=== PATIENT | female | born 1980 | race Caucasian/White ===

== ENCOUNTER 2022-11-09 16:14 | Outpatient (CLI) | payer OTHER, SELFPAY ==
--- NOTE | ~2022-11-09 | MM_ITS ---
EXAMINATION: MM screening mercedes BI w loco HISTORY: Screening mammogram TECHNIQUE: Craniocaudal and mediolateral oblique 3-D tomosynthesis images were obtained and synthetic 2-D images were generated. CAD analysis was submitted and interpreted. COMPARISON: No prior mammogram is available for comparison at this institution. BREAST PARENCHYMAL COMPOSITION: The breasts are heterogeneously dense, which may obscure small masses . FINDINGS: There is no evidence of suspicious mass, calcification, or architectural distortion to sugg est malignancy in either breast. There has been no suspicious interval change. IMPRESSION: 1. No mammographic evidence of malignancy. 2. Recommend routine screening mammography in one year. BI-RADS Category 1: Negative Reviewed, dictated and finalized at location A. D UNDERWRITER
== END 2022-11-09 16:15 | disposition home or self-care (01) ==
PROVIDERS: PCP Internal Medicine; Visit Provider Student in an Organized Health Care Education/Training Program
DX: Z12.31 Encounter for screening mammogram for malignant neoplasm of breast (principal)
CPT/HCPCS: 77063; 77067

== ENCOUNTER 2023-04-05 13:24 | Outpatient (CLI) | payer OTHER, SELFPAY ==
[2023-04-05 19:54] LABS: Influenza A QL RT-PCR Negative (Negative); Influenza B QL RT-PCR Negative (Negative); SARS-CoV-2 RNA PCR Negative (Negative)
== END 2023-04-05 13:25 | disposition home or self-care (01) ==
LOC: ANHGOSHLAB 13:25
PROVIDERS: PCP Internal Medicine; Visit Provider Internal Medicine
DX: J06.9 Acute upper respiratory infection, unspecified (principal); Z20.822 Contact with and (suspected) exposure to COVID-19
CPT/HCPCS: 87081; 87147; 87636

== ENCOUNTER → 2023-05-04 08:12 | Outpatient (CLI) | payer OTHER, SELFPAY ==
--- NOTE | ~2023-05-04 | US_ITS ---
EXAMINATION: US right upper quadrant DATE: 05/04/2023 08:44 INDICATION: Abnormal liver function TECHNIQUE: Multiple grayscale and Doppler ultrasound images of the abdomen were obtained. COMPARISON: None available FINDINGS: The head and body of the pancreas are normal. The pancreatic tail is obscured by bowel gas. The liver is normal with normal echogenicity and echotexture. No surface nodularity. Normal hepatope nas flow in the main portal vein. The gallbladder is normal with no abnormal wall thickening, pericho lecystic fluid or stones. The normal common bile duct measures 4 mm. There was no sonographic Osman sign. IMPRESSION: 1. Normal sonographic study of the gallbladder. Reviewed, dictated and finalized at location B.
== END ==
PROVIDERS: PCP Internal Medicine; Visit Provider Internal Medicine
DX: R94.5 Abnormal results of liver function studies (principal)
CPT/HCPCS: 76705

== ENCOUNTER 2023-12-28 13:32 | Outpatient (CLI) | payer OTHER, SELFPAY ==
--- NOTE | ~2023-12-28 | MM_ITS ---
EXAMINATION: MM screening mercedes BI w loco HISTORY: Screening mammogram TECHNIQUE: Craniocaudal and mediolateral oblique 3-D tomosynthesis images were obtained and synthetic 2-D images were generated. CAD analysis was submitted and interpreted. COMPARISON: 11/09/2022 bilateral screening mammogram BREAST PARENCHYMAL COMPOSITION: The breasts are heterogeneously dense, which may obscure small masses . FINDINGS: There is no evidence of suspicious mass, calcification, or architectural distortion to sugg est malignancy in either breast. There has been no suspicious interval change. IMPRESSION: 1. No mammographic evidence of malignancy. 2. Recommend routine screening mammography in one year. BI-RADS Category 1: Negative Reviewed, dictated and finalized at location A. SCHOOL SCIENCE TEACHER
== END 2023-12-28 13:33 ==
LOC: MICIMG 13:33
PROVIDERS: PCP Student in an Organized Health Care Education/Training Program; Visit Provider Student in an Organized Health Care Education/Training Program
DX: Z12.31 Encounter for screening mammogram for malignant neoplasm of breast (principal)
CPT/HCPCS: 77063; 77067

== ENCOUNTER 2025-01-01 14:47 | Outpatient (CLI) | payer OTHER, SELFPAY ==
--- NOTE | ~2025-01-01 | MM_ITS ---
EXAMINATION: MM screening mercedes BI w loco HISTORY: Screening mammogram TECHNIQUE: Craniocaudal and mediolateral oblique 3-D tomosynthesis images were obtained and synthetic 2-D images were generated. CAD analysis was submitted and interpreted. COMPARISON: 12/28/2023, 11/09/2022 BREAST PARENCHYMAL COMPOSITION:Dense: The breasts are heterogeneously dense, which may obscure small masses. FINDINGS: No suspicious mass, calcification, or architectural distortion are identified in either tiffany ast to suggest malignancy. There has been no suspicious interval change. IMPRESSION: No mammographic evidence of malignancy. Recommend routine screening mammography in one year. BI-RADS Category 1: Negative Reviewed, dictated and finalized at location .
--- OUTSIDE RECORDS SUMMARY | 2025-01-01 16:49 | XMS_ITS | Patient Health Summary ---
Author Organization [facility] [place] Address [address] [address] Care Team Providers Care Poultry Vaccinator Name Role Phone Sri Roque PA-C Primary Care Provider Note from [facility],non-owned Affiliates and Associated Physician Practices is amultiple site organization consisting of ambulatory clinics and hospital sitesin [place], [place], [place] and [place]. This disclosure is being madepursuant to the Care Everywhere program and may not contain all information available regarding this patient. Last updated 18.[facility] [place] Allergies * Food(GI Discomfort) Medications * Be aware that medications may not be up to date on this document. Alwaysverify current medications with the patient. * Wdmgbniu-Tne-Xf-FA ( VITAMIN WITH IRON) tablet Take 1 tablet by mouth once daily Reasons: Active Problems Problem Noted Date Diagnosed Date Advanced maternal age in multigravida 01/20/2018 Herpes genitalis 01/20/2018 History of chickenpox 01/20/2018 Social History Tobacco Use Types Packs/Day Years Used Date Smoking Tobacco: Never Smokeless Tobacco: Never Alcohol Use Standard Drinks/Week Comments No 0 (1 standard drink = 0.6 oz pur e alcohol) Sex and Gender Information Value Date Recorded Sex Assigned at Not on file Gender Identity Not on file Sexual Orientation Not on file Last Filed Vital Signs Vital Sign Reading Time Taken Comments Blood Pressure - - Pulse - - Temperature - - Respiratory Rate - - Oxygen Saturation - - Inhaled Oxygen Concentration - - Weight - - Height 162.6 cm (5' 4 ) 01/20/2018 9:11 AM CDT Body Mass Index - - Procedures * SONOGRAM - COMPLETE(Performed 03/14/2018) Performed for Elderly multigravida in first trimester (HCC) * SONOGRAM - COMPLETE(Performed 01/24/2018) Performed for Elderly multigravida in first trimester (HCC) Results * SONOGRAM - COMPLETE (03/14/2018 9:33 AM CDT) Only the most recent of2 resultswithin the time period is included. Anatomical Region Laterality Modality Other 03/14/2018 9:33 AM CDT Narrative 03/14/2018 8:36 PM CDT [facility] PHONE: FAX: Pat. Name: SONIA JONESGRAYSON Shah. No: [id number] Study Date: 03/14/2018 9:33am , Age: 07 1980, 37 Pregnancies: 3, Para 2 Height: 64 in Weight: 145 lb LMP: 10/23/2017 GA by LMP: 20w2d GA by Base: 20w2d MARIA ESTHER: 07/30/2018 GA by US: 20w1d MARIA ESTHER: 07/31/2018 GA Selected: 20w2d (LMP) MARIA ESTHER: 07/30/2018 Referring MD: Keaton Meza MD Pumper Helper: Fawn Quintanilla RDMS CPT4: 87769,20796 BMI: 24.89 Hist/Ind: Advanced Maternal Age Anatomy Screen Declines Genetic Testing MEASUREMENTS & AGE GROWTH EVALUATION Measurement GA Range Srce %for GA Ratios ----- ---- ------- BPD 4.6 cm 19w6d (38g7w-75g5l) Hadl BPD 32% FL/BPD 0.66 HC 17.5 cm 20w0d ([id number]-98i5q) Hadl HC 26% FL/AC 0.20 AC 15.5 cm 20w5d (00h7x-36g9o) Hadl AC 55% HC/AC 1.13 (1.06 - 1.24) FL 3.0 cm 19w3d (20s1k-68c7x) Hadl FL 14% CI 0.73 (0.70 - 0.86) HL 3.2 cm 20w6d (35k2q-35h3t) Jose HL 58% GA for sonogram 20w1d (47l2z-51h4u) Weight Estimate: based on (HL,BPD,HC,AC,FL) Avg Weight: 330 gm (282-378gm) Hadloc : 0lbs, 11oz Normal: 351 gm (263-440gm) Hadloc Wt% 33% for 20w2d Heart Rate: 148 bpm Amniotic Fluid Index: 05.3cm (Deepest Pocket) EVAL, PLACENTA Presentation: cephalic Umbilical Cord: 3 Vessels Placenta: anterior Heart Rate: 148 bpm Amniotic Fluid Volume: normal Anatomy!Normal!Abnormal!Suboptimal!Comments Cranium ! x ! ! ! Mdl (CSP/Thal! x ! ! ! Ventricles ! x ! ! ! Choroid Plexu! x ! ! ! Cerebellum ! x ! ! ! Cisterna M. ! x ! ! ! Nuchal Fold ! x ! ! ! Profile ! x ! ! ! Nasal Bone ! x ! ! ! Lip ! x ! ! ! Spine ! x ! ! ! Lungs ! x ! ! ! 4 Chamber Hea! x ! ! ! LVOT ! x ! ! ! RVOT ! x ! ! ! 3 Vessel View! x ! ! ! Cross-over ! x ! ! ! Ductal Arch ! x ! ! ! Aortic Arch ! x ! ! ! Caval View ! x ! ! ! Situs ! x ! ! ! Diaphragm ! x ! ! ! Stomach ! x ! ! ! Bowel ! x ! ! ! Kidneys ! x ! ! ! Bladder ! x ! ! ! 3 Vessel Cord! x ! ! ! Cord In! x ! ! ! Upper Extremi! x ! ! ! Hands ! x ! ! ! Lower Extremi! x ! ! ! Feet ! x ! ! ! External Desire! x ! ! !Female CLINICAL SUMMARY Study Number: 2 A single fetus is identified in cephalic presentation. The measurements today are consistent with appropriate growth for the MARIA ESTHER provided. The MARIA ESTHER selected is based on her LMP and a prior ultrasound examination. The amniotic fluid volume is normal. The placenta is anterior. No major malformations are seen. The patient was advised that ultrasound does not allow detection of all structural or chromosomal abnormalities. IMPRESSION: Single, live, IUP 20w2d Appropriate growth normal amniotic fluid Transvaginal cervical length measures 4.3cm RECOMMEND: Follow up ultrasound as clinically indicated. Thank you for allowing us the opportunity to care for your patient. Luther Pierre MD <Electronic Signature> 03/14/2018 08:36pm Keaton Meza MD [facility] ORDERABLES Care Teams Poultry Vaccinator Relationship Specialty Start Date End Date Sri Roque, DAGOBERTOC PCP - General Family Medicine 10/31/18
--- OUTSIDE RECORDS SUMMARY | 2025-01-01 16:49 | XMS_ITS | Data Portability ---
[facility] Address [address] [place] [address] Assessment Encounter Date Assessment Date Assessment LastModified by Organization Details LastModified Time 08/12/2021 08/12/2021 HARINI Schneider Not available 08/12/2021 16:50:31 Plan of Treatment Reminders Order Date Submit Date Provider Last Modified By Organization Details Last Modified Time Details Appointments None recorded. Lab pap, IG + HPV, cervical - please use Z11.51 in addition to code above for HPV testing. 2020 LENNY [facility], [address], [address] [address], [place], [address], 08:17:16 urinalysi s, dipstick 2020 021 [email or web address] In-Office Order, Internal Use Only DO Not Attach Compendium DO Not Attach Compendium, Do Not Delete/merge, [id number] 16:50:12 bacterial vaginosis panel, vaginal 2020 LENNY [facility] (Centralized Electronic Ordering - All Locations), Patient Can Go To The Location Of Their Choice, [address] 11:37:33 culture, vaginal/r ectal, streptoco ccus group B 2020 LENNY [facility] (Centralized Electronic Ordering - All Locations), Patient Can Go To The Location Of Their Choice, [address] 11:37:34 lipid panel, serum 2019 020 LENNY [facility], [address], [address], [place], [address], 0 06:38:03 CMP, serum or plasma 2019 020 [facility], [address], [address]ank[address], [place], [address], 0 06:38:03 TSH, serum or plasma 2019 020 SAMOA [facility], [address], [address], [place], [address], 0 06:38:05 CBC w/ auto diff 2019 SAMOA [facility], [address], [address]ank[address]icas, [place], [address], 0 06:38:04 vitamin B12 + folate, serum or blood 2019 020 SAMOA [facility], [address], [address], [place], [address], 0 06:38:04 iron + TIBC + ferritin, serum 2019 [facility], [address], [address]ank[address], [place], [address], 0 06:38:05 vitamin D, 25-hydrox y, total, serum 2019 020 [facility], [address], [address]ankar [address]icas, [place], [address], 0 16:23:30 test, urine 2018 019 [email or web address] In-Office Order, Internal Use Only DO Not Attach Compendium DO Not Attach Compendium, Do Not Delete/merge, [id number] 9 12:36:57 urinalysi s, dipstick 2018 019 [email or web address] In-Office Order, Internal Use Only DO Not Attach Compendium DO Not Attach Compendium, Do Not Delete/merge, [id number] 9 12:36:57 PPD (purified protein derivativ e), skin test 2017 018 [email or web address] In-Office Order, Internal Use Only DO Not Attach Compendium DO Not Attach Compendium, Do Not Delete/merge, [id number] 8 18:42:26 Referral None recorded. Procedures None recorded. Surgeries None recorded. Imaging None recorded. Medication Orders multivita min tablet 2020 021 LENNY [facility] [address], [address], 1 16:50:15 Calcium with Vitamin D 600 mg-10 mcg (400 unit) tablet 2020 021 [facility] [address], [address], 1 16:50:16 Slynd 4 mg (28) tablet 2019 020 [email or web address] [facility] [address], [address], 1 15:06:45 multivita min tablet 2019 020 [facility] [address], [address], 0 16:31:26 Calcium with Vitamin D 600 mg-10 mcg (400 unit) tablet 2019 020 [facility] [address], [address], 0 16:31:25 amoxicill in 875 mg-potass ium clavulana te 125 mg tablet 2019 020 [email or web address] [address] In [facility], [address] [place], [address], 1 15:05:45 Claritin 10 mg tablet 2019 020 [facility] [address] In [facility], [address] [place], [address], 0 16:48:27 Patient TargetsNo targets recorded. Patient InstructionsNo instructions recorded. Reason for Referral None Reported. Results Created Date Observation Date Name Description Value Unit Range Abnormal Flag Note LastModifiedBy Organization Detail LastModifiedTime 09/11/20 18 09/11/2018 bacte rial vagin osis + vagin itis panel , vagin al bv category: NOT SUPPOR TIVE see below Refer ence Range : Not Suppo rtive Not Available [address] [address] [place], [address], 09/11/2018 08:53:42 09/11/20 18 09/11/2018 bacte rial vagin osis + vagin itis panel , vagin al lactobacillu s species DETECT ED log_c ells/ mL Not Available [address] [address] [place], [address], 09/11/2018 08:53:42 09/11/20 18 09/11/2018 bacte rial vagin osis + vagin itis panel , vagin al atopobium vaginae NOT DETECT ED log_c ells/ mL - Not Available [facility] [address] [address] [place], [address], 09/11/2018 08:53:42 09/11/20 18 09/11/2018 bacte rial vagin osis + vagin itis panel , vagin al megasphaera species NOT DETECT ED log_c ells/ mL - Not Available [facility] [address] [address] [place], [address], 09/11/2018 08:53:42 09/11/20 18 09/11/2018 bacte rial vagin osis + vagin itis panel , vagin al gardnerella vaginalis NOT DETECT ED log_c ells/ mL - NOT SUPPO RTIVE of BV: The patte rn of teofilo encarnacion is not suppo rtive of a diagn osis of BV: 1) Prese nce of Lacto bacil reno spp., G. vagin martha level s less than 6.0 log cells /mL, and absen ce of A. vagin ae and Megas phaer a spp; or 2) Absen ce of all targe sebastián organ isms; or 3) Absen ce of Lacto bacil reno spp. plus G. vagin martha detec sebastián at level s less than 6.0 log cells /mL and absen ce of A. vagin ae and Megas phaer a spp. EQUIV OCAL for BV: The patte rn of teofilo encarnacion is neith er suppo rtive nor not suppo rtive of a diagn osis of BV. The patie nt may be in trans ition into or out of BV: Prese nce of Lacto bacil reno spp. plus G. vagin martha (grea ter or equal to 6.0 log cells /mL) and/o r one of the other BV-as socia sebastián patho gens SUPPO RTIVE of BV: The patte rn of teofilo encarnacion is suppo rtive of a diagn osis of BV: Absen ce of Lacto bacil reno spp. and prese nce of G. vagin martha great er than or equal to 6.0 log cells /mL and/o r one or both of the other BV-as socia sebastián patho gens. Janel ntrat ion for Lacto bacil li (L. acido philu s/cri spatu s, L. jense juancarlos) are colle ctive ly repor sebastián under the term 'Lact obaci llus spp.' , as these speci es are among the perox james produ cing Lacto bacil li thoug ht to be prote ctive again st bacte rial vagin osis. Atopo bium vagin ae, Megas phaer a spp., and Gardn erell a (grea ter than 6.0 log cells /mL) have been assoc iated with vagin osis when prese nt in the absen ce of perox idase produ cing Lacto bacil li. Not Available [facility] - [address] [place], [address], 09/11/2018 08:53:42 09/11/20 18 09/11/2018 bacte rial vagin osis + vagin itis panel , vagin al sureswab(R) trichomonas vaginalis RNA, ql tma NOT DETECT ED not detect ed Not Available [facility] - [address] [address] [place], [address], 09/11/2018 08:53:42 09/11/20 18 09/11/2018 bacte rial vagin osis + vagin itis panel , vagin al C. albicans, DNA NOT DETECT ED not detect ed Not Available [facility] - [address], [address], 09/11/2018 08:53:42 09/11/20 18 09/11/2018 bacte rial vagin osis + vagin itis panel , vagin al C. glabrata, DNA NOT DETECT ED not detect ed Not Available [facility] - [address], [address], 09/11/2018 08:53:42 09/11/20 18 09/11/2018 bacte rial vagin osis + vagin itis panel , vagin al C. tropicalis, DNA NOT DETECT ED not detect ed Not Available [facility] - [address] [address] [place], [address], 09/11/2018 08:53:42 09/11/20 18 09/11/2018 bacte rial vagin osis + vagin itis panel , vagin al C. parapsilosis , DNA NOT DETECT ED not detect ed This test was devel oped and its latosha tical perfo rmanc e rohan cteri stics have been deter mined by [facility] ostestela [facility] Shanel mary. It has not been clear ed or appro joycelyn by the [place] Food and Drug Admin istra tion. This assay has been valid ated pursu ant to the CLIA regul ation s and is used for clini anny purpo ses. For more infor arnold fair on this test, go to: http: //[facility] radha fair.que stdia gnost ics.c om/fa q/Tri chomo nastm a Not Available [facility] [address] [address] [place], [address], 09/11/2018 08:53:42 09/11/20 18 09/11/2018 HSV (1+2) DNA, qual, PCR, unspe cifie d speci men hsv 1 DNA NOT DETECT ED not detect ed Not Available [facility] [address] [address] [place], [address], 09/11/2018 08:53:42 09/11/20 18 09/11/2018 HSV (1+2) DNA, qual, PCR, unspe cifie d speci men hsv 2 DNA NOT DETECT ED not detect ed This test was devel oped and its latosha tical perfo rmanc e rohan cteri stics have been deter mined by [facility] wanda Ugarte cia. It has not been clear ed or appro joycelyn by the [place] Food and Drug Admin istra tion. This assay has been valid ated pursu ant to the CLIA regul ation s and is used for clini anny purpo ses. Not Available [facility] [address] [address] [place], [address], 09/11/2018 08:53:42 09/11/20 18 09/11/2018 yeast , organ ism speci fic cultu re, unspe cifie d speci men culture, yeast, w/identifica tion SEE NOTE CULTU RE, YEAST , W/JAMES NTIFI CATIO N MICRO NUMBE R: [id number] TEST STATU S: FINAL SPECI MEN SOURC E: UNSPE CIFIE D SPECI MEN QUALI TY: ADEQU ATE RESUL T: Asper gillu s speci es (not A. fumig atus, flavu s or niger group ) NO COLLE CTION DATE RECEI JOYCELYN. WE HAVE USED THE DATE THE SPECI MEN WAS RECEI JOYCELYN BY THIS LABOR ATORY THE COLLE CTION DATE. IF THIS IS INCOR RECT, PLEAS E CONTA CT CLIEN T SERVI MARK. PHONE NUMBE R: [phone] Not Available [facility] [address] [place], [address], 09/11/2018 08:53:43 08/12/2008/12/2021 urina lysis , dipst ick Leukocytes Negati ve Not Available In-Office Order Internal Use Only DO Not Attach Compendium DO Not Attach Compendium, Do Not Delete/merge, [id number] 08/12/2021 14:58:18 08/12/20 21 08/12/2021 urina lysis , dipst ick Nitrite negati ve Not Available In-Office Order Internal Use Only DO Not Attach Compendium DO Not Attach Compendium, Do Not Delete/merge, 08/12/2021 14:58:18 08/12/20 21 08/12/2021 urina lysis , dipst ick Urobilinogen .2 Not Available In-Of fice Order Internal Use Only DO Not Attach Compendium DO Not Attach Compendium, Do Not Delete/merge, [id number] 08/12/2021 14:58:18 08/12/20 21 08/12/2021 urina lysis , dipst ick Protein Negati ve Not Available In-Office Order Internal Use Only DO Not Attach Compendium DO Not Attach Compendium, Do Not Delete/merge, [id number] 08/12/2021 14:58:18 08/12/20 21 08/12/2021 urina lysis , dipst ick pH 5.5 Not Available In-Office Order Internal Use Only DO Not Attach Compendium DO Not Attach Compendium, Do Not Delete/merge, [id number] 08/12/2021 14:58:18 08/12/20 21 08/12/2021 urina lysis , dipst ick Blood Hemoly zed: Trace Not Available In-Office Order Internal Use Only DO Not Attach Compendium DO Not Attach Compendium, Do Not Delete/merge, 08/12/2021 14:58:18 08/12/20 21 08/12/2021 urina lysis , dipst ick Specific [place] 1.025 Not Available In-Off ice Order Internal Use Only DO Not Attach Compendium DO Not Attach Compendium, Do Not Delete/merge, 08/12/2021 14:58:18 08/12/20 21 08/12/2021 urina lysis , dipst ick Ketone Trace Not Available In-Office Order Internal Use Only DO Not Attach Compendium DO Not Attach Compendium, Do Not Delete/merge, 08/12/2021 14:58:18 08/12/20 21 08/12/2021 urina lysis , dipst ick Bilirubin Negati ve Not Available In-Office Order Internal Use Only DO Not Attach Compendium DO Not Attach Compendium, Do Not Delete/merge, 08/12/2021 14:58:18 08/12/20 21 08/12/2021 urina lysis , dipst ick Glucose Negati ve Not Available In-Office Order Internal Use Only DO Not Attach Compendium DO Not Attach Compendium, Do Not Delete/merge, 08/12/2021 14:58:18 11/23/19 19 11/23/2018 urina lysis , dipst ick Leukocytes Negati ve Not Available In-Office Order Internal Use Only DO Not Attach Compendium DO Not Attach Compendium, Do Not Delete/merge, 11/23/2018 12:04:49 11/23/19 19 11/23/2018 urina lysis , dipst ick Nitrite negati ve Not Available In-Office Order Internal Use Only DO Not Attach Compendium DO Not Attach Compendium, Do Not Delete/merge, 11/23/2018 12:04:49 11/23/19 19 11/23/2018 urina lysis , dipst ick Urobilinogen .2 Not Available In-Of fice Order Internal Use Only DO Not Attach Compendium DO Not Attach Compendium, Do Not Delete/merge, 11/23/2018 12:04:49 11/23/19 19 11/23/2018 urina lysis , dipst ick Protein Negati ve Not Available In-Office Order Internal Use Only DO Not Attach Compendium DO Not Attach Compendium, Do Not Delete/merge, 11/23/2018 12:04:49 11/23/1911/23/2018 urina lysis , dipst ick pH 5.0 Not Available In-Office Order Internal Use Only DO Not Attach Compendium DO Not Attach Compendium, Do Not Delete/merge, 11/23/2018 12:04:49 11/23/1911/23/2018 urina lysis , dipst ick Blood Negati ve Not Available In-Office Order Internal Use Only DO Not Attach Compendium DO Not Attach Compendium, Do Not Delete/merge, 11/23/2018 12:04:49 11/23/1911/23/2018 urina lysis , dipst ick Specific [place] 1.030 Not Available In-Off ice Order Internal Use Only DO Not Attach Compendium DO Not Attach Compendium, Do Not Delete/merge, 11/23/2018 12:04:49 11/23/1911/23/2018 urina lysis , dipst ick Ketone Negati ve Not Available In-Office Order Internal Use Only DO Not Attach Compendium DO Not Attach Compendium, Do Not Delete/merge, 11/23/2018 12:04:49 11/23/1911/23/2018 urina lysis , dipst ick Bilirubin Negati ve Not Available In-Office Order Internal Use Only DO Not Attach Compendium DO Not Attach Compendium, Do Not Delete/merge, 11/23/2018 12:04:49 11/23/1911/23/2018 urina lysis , dipst ick Glucose Negati ve Not Available In-Office Order Internal Use Only DO Not Attach Compendium DO Not Attach Compendium, Do Not Delete/merge, 11/23/2018 12:04:49 11/23/1911/23/2018 pregn jalil test, urine HCG negati ve Not Available In-Office Order Internal Use Only DO Not Attach Compendium DO Not Attach Compendium, Do Not Delete/merge, 11/23/2018 12:04:42 10/12/20 18 10/12/2018 PPD (tai fied prote in deriv ative ), skin test Result Negati ve Not Available In-Office Order Internal Use Only DO Not Attach Compendium DO Not Attach Compendium, Do Not Delete/merge, [id number] 10/10/2018 18:35:10 10/25/19 19 10/25/2018 PPD (tai fied prote in deriv ative ), skin test Result Negati ve Not Available In-Office Order Internal Use Only DO Not Attach Compendium DO Not Attach Compendium, Do Not Delete/merge, [id number] 10/20/2018 16:41:02 07/10/20 20 07/11/2020 iron + TIBC + sathish tin, serum iron, total 58 mcg/d L 40-190 normal Not Available [address], [address], 07/11/2020 10:45:47 07/10/20 20 07/11/2020 iron + TIBC + sathish tin, serum iron binding capacity 322 mcg/d L_(ca lc) 250-45 0 normal Not Available [address], [address], 07/11/2020 10:45:47 07/10/20 20 07/11/2020 iron + TIBC + sathish tin, serum % saturation 18 %_(ca lc) 16-45 normal Not Available [address], [address], 07/11/2020 10:45:47 07/10/20 20 07/11/2020 iron + TIBC + sathish tin, serum ferritin 37 NG/mL 16-154 normal Not Available [address], [address], 07/11/2020 10:45:47 07/10/20 20 07/11/2020 lipid panel , serum cholesterol, total 161 mg/dL <200 normal Not Available [address], [address], 07/11/2020 10:45:47 07/10/20 20 07/11/2020 lipid panel , serum HDL cholesterol 52 mg/dL > or = 50 normal Not Available [address], [address], 07/11/2020 10:45:47 07/10/20 20 07/11/2020 lipid panel , serum triglyceride s 84 mg/dL <150 normal Not Available [address], [address], 07/11/2020 10:45:47 07/10/20 20 07/11/2020 lipid panel , serum LDL-choleste rol 92 mg/dL _(anny c) normal Refer ence range : <100 Olu able range <100 mg/dL for prima ry preve ntion ; <70 mg/dL for patie nts with CHD or diabe tic patie nts with > or = 2 CHD risk facto rs. LDL-C is now calcu lated using the Ryanne fair-Hop kins calcu sheryl n, which is a valid ated novel metho d provi ding shefali r accur acy than the Fried ezekiel equat ion in the estim ation of LDL-C . Ryanne fair SS et al. AMRIK. 2013; 310(1 9): 2061- 2068 (http ://ed ucati on.Qu Srinivas PEX Card. com/f aq/FA Q164) Not Available [address] [address] [place], [address], 07/11/2020 10:45:47 07/10/2007/11/2020 lipid panel , serum chol/HDLC ratio 3.1 (calc ) <5.0 normal Not Available [address], [address], 07/11/2020 10:45:47 07/10/2007/11/2020 lipid panel , serum non HDL cholesterol 109 mg/dL _(anny c) <130 normal For patie nts with diabe robbi plus 1 major ASCVD risk facto r, treat ing to a non-H DL-C goal of <100 mg/dL (LDL- C of <70 mg/dL ) is consi dered a thera peuti c optio n. Not Available [address], [address], 07/11/2020 10:45:47 07/10/20 20 07/11/2020 CMP, serum or plasm a glucose 92 mg/dL 65-99 normal Fasti ng refer ence inter diana Not Available [address], [address], 07/11/2020 10:45:47 07/10/20 20 07/11/2020 CMP, serum or plasm a urea nitrogen (BUN) 10 mg/dL 7-25 normal Not Available [address], [address], 07/11/2020 10:45:47 07/10/20 20 07/11/2020 CMP, serum or plasm a creatinine 0.61 mg/dL 0.50-1 .10 normal Not Available [address], [address], 07/11/2020 10:45:47 07/10/20 20 07/11/2020 CMP, serum or plasm a eGFR non-afr. egyptian 114 mL/mi n/1.7 3m2 > or = 60 normal Not Available [address], [address], 07/11/2020 10:45:47 07/10/20 20 07/11/2020 CMP, serum or plasm a eGFR 132 mL/mi n/1.7 3m2 > or = 60 normal Not Available [address], [address], 07/11/2020 10:45:47 07/10/20 20 07/11/2020 CMP, serum or plasm a BUN/creatini ne ratio NOT APPLIC ABLE (calc ) 6-22 Not Available [address], [address], 07/11/2020 10:45:47 07/10/20 20 07/11/2020 CMP, serum or plasm a sodium 137 mmol/ L 135-14 6 normal Not Available [address], [address], 07/11/2020 10:45:47 07/10/20 20 07/11/2020 CMP, serum or plasm a potassium 4.6 mmol/ L 3.5-5. 3 normal Not Available [address], [address], 07/11/2020 10:45:47 07/10/2007/11/2020 CMP, serum or plasm a chloride 101 mmol/ L 98-110 normal Not Available [address], [address], 07/11/2020 10:45:47 07/10/20 20 07/11/2020 CMP, serum or plasm a carbon dioxide 29 mmol/ L 20-32 normal Not Available [address], [address], 07/11/2020 10:45:47 07/10/20 20 07/11/2020 CMP, serum or plasm a calcium 9.3 mg/dL 8.6-10 .2 normal Not Available [address], [address], 07/11/2020 10:45:47 07/10/2007/11/2020 CMP, serum or plasm a protein, total 6.9 g/dL 6.1-8. 1 normal Not Available [address], [address], 07/11/2020 10:45:47 07/10/20 20 07/11/2020 CMP, serum or plasm a albumin 4.1 g/dL 3.6-5. 1 normal Not Available [address], [address], 07/11/2020 10:45:47 07/10/20 20 07/11/2020 CMP, serum or plasm a globulin 2.8 g/dL_ (calc ) 1.9-3. 7 normal Not Available [address], [address], 07/11/2020 10:45:47 07/10/20 20 07/11/2020 CMP, serum or plasm a albumin/glob ulin ratio 1.5 (calc ) 1.0-2. 5 normal Not Available [address], [address], 07/11/2020 10:45:47 07/10/20 20 07/11/2020 CMP, serum or plasm a bilirubin, total 0.5 mg/dL 0.2-1. 2 normal Not Available [address], [address], 07/11/2020 10:45:47 07/10/20 20 07/11/2020 CMP, serum or plasm a alkaline phosphatase 46 U/L 31-125 normal Not Available [facility] [address], [address], 07/11/2020 10:45:47 07/10/20 20 07/11/2020 CMP, serum or plasm a AST 14 U/L 10-30 normal Not Available [address], [address], 07/11/2020 10:45:47 07/10/20 20 07/11/2020 CMP, serum or plasm a ALT 17 U/L 6-29 normal Not Available [address], [address], 07/11/2020 10:45:47 07/10/20 20 07/11/2020 CBC w/ auto diff white blood cell count 7.4 thous and/u L 3.8-10 .8 normal Not Available [address], [address], 07/11/2020 10:45:48 07/10/2007/11/2020 CBC w/ auto diff red blood cell count 4.14 lydia on/uL 3.80-5 .10 normal Not Available [address], [address], 07/11/2020 10:45:48 07/10/2007/11/2020 CBC w/ auto diff hemoglobin 12.2 g/dL 11.7-1 5.5 normal Not Available [address], [address], 07/11/2020 10:45:48 07/10/2007/11/2020 CBC w/ auto diff hematocrit 37.3 % 35.0-4 5.0 normal Not Available [address], [address], 07/11/2020 10:45:48 07/10/20 20 07/11/2020 CBC w/ auto diff MCV 90.1 fL 80.0-1 00.0 normal Not Available [address], [address], 07/11/2020 10:45:48 07/10/2007/11/2020 CBC w/ auto diff MCH 29.5 pg 27.0-3 3.0 normal Not Available [address], [address], 07/11/2020 10:45:48 07/10/2007/11/2020 CBC w/ auto diff MCHC 32.7 g/dL 32.0-3 6.0 normal Not Available [address], [address], 07/11/2020 10:45:48 07/10/2007/11/2020 CBC w/ auto diff RDW 12.1 % 11.0-1 5.0 normal Not Available [address], [address], 07/11/2020 10:45:48 07/10/20 20 07/11/2020 CBC w/ auto diff platelet count 276 thous and/u L 140-40 0 normal Not Available [address], [address], 07/11/2020 10:45:48 07/10/20 20 07/11/2020 CBC w/ auto diff MPV 12.5 fL 7.5-12 .5 normal Not Available [address], [address], 07/11/2020 10:45:48 07/10/20 20 07/11/2020 CBC w/ auto diff absolute neutrophils 4803 cells /uL 1500-7 800 normal Not Available [address], [address], 07/11/2020 10:45:48 07/10/20 20 07/11/2020 CBC w/ auto diff absolute lymphocytes 1702 cells /uL 850-39 00 normal Not Available [address], [address], 07/11/2020 10:45:48 07/10/20 20 07/11/2020 CBC w/ auto diff absolute monocytes 555 cells /uL 200-95 0 normal Not Available [address], [address], 07/11/2020 10:45:48 07/10/20 20 07/11/2020 CBC w/ auto diff absolute eosinophils 289 cells /uL 15-500 normal Not Available [address], [address], 07/11/2020 10:45:48 07/10/20 20 07/11/2020 CBC w/ auto diff absolute basophils 52 cells /uL 0-200 normal Not Available [address], [address], 07/11/2020 10:45:48 07/10/20 20 07/11/2020 CBC w/ auto diff neutrophils 64.9 % normal Not Available [address], [address], 07/11/2020 10:45:48 07/10/20 20 07/11/2020 CBC w/ auto diff lymphocytes 23.0 % normal Not Available [address], [address], 07/11/2020 10:45:48 07/10/20 20 07/11/2020 CBC w/ auto diff monocytes 7.5 % normal Not Available [address], [address], 07/11/2020 10:45:48 07/10/20 20 07/11/2020 CBC w/ auto diff eosinophils 3.9 % normal Not Available [address], [address], 07/11/2020 10:45:48 07/10/20 20 07/11/2020 CBC w/ auto diff basophils 0.7 % normal Not Available [address], [address], 07/11/2020 10:45:48 07/10/20 20 07/11/2020 awn test refus al RAM1 Be advis ed that your patie nt has indic ated on the advan ce writt en notic e their decis ion not to recei ve the [facility] labor atory tests . As a resul t, the tests will not be perfo rmed. Not Available [address], [address], 07/11/2020 10:45:48 07/10/20 20 07/11/2020 awn test refus al awn test refused [id number] Not Available [address], [address], 07/11/2020 10:45:48 07/10/20 20 07/11/2020 vitam in B12 + folat e, serum or blood vitamin B12 333 pg/mL 200-11 00 normal Pleas e Note: Altho ugh the refer ence range for vitam in B12 is 200-1 100 pg/mL , it has been repor sebastián that betwe en 5 and 10% of patie nts with value s betwe en 200 and 400 pg/mL may exper ience neuro psych iatri c and hemat ologi c abnor malit ies due to occul t B12 defic iency ; less than 1% of patie nts with value s above 400 pg/mL will have sympt oms. Not Available [facility] [address] [place], [address], 07/11/2020 10:45:48 07/10/20 20 07/11/2020 vitam in B12 + folat e, serum or blood folate, serum 13.2 NG/mL normal Refer ence Range Low: <3.4 Borde rline : 3.4-5 .4 Mackenzie l: >5.4 Not Available [facility] [address] [place], [address], 07/11/2020 10:45:48 07/10/2007/11/2020 TSH, serum or plasm a TSH w/reflex to FT4 1.20 mIU/L normal Refer ence Range > or = 20 Years 0.40- 4.50 Pregn jalil Range s First trime ster 0.26- 2.66 Secon d trime ster 0.55- 2.73 Third trime ster 0.43- 2.91 Not Available [facility] [address] [place], [address], 07/11/2020 10:45:49 08/12/20 21 08/14/2021 IGP, APTIM A HPV diagnosis: Commen t NEGAT KIERAN FOR INTRA EPITH ELIAL LESIO N OR JAYJAY TREJO . Not Available [facility] ([facility]) [address] [facility], [place], [address], 08/15/2021 08:17:16 08/12/2008/14/2021 IGP, APTIM A HPV specimen adequacy: Parveen bello Satis facto ry for evalu ation . Endoc ervic al and/o r squam ous metap lasti c cells (endo cervi anny compo nent) are prese nt. Not Available [facility] ([facility]) [address] [facility], [place], [address], 08/15/2021 08:17:16 08/12/20 21 08/14/2021 IGP, APTIM A HPV clinician provided ICD10: Parveen bello Z01.4 19 Not Available [facility] ([facility]) [address] [place], [address], 08/15/2021 08:17:16 08/12/20 21 08/14/2021 IGP, APTIM A HPV performed by: Parveen finley, Cytot jeff reilly t (ASCP ) Not Available [facility] ([facility]) [address] [place], [address], 08/15/2021 08:17:16 08/12/20 21 08/14/2021 IGP, APTIM A HPV . . Not Available [facility] ([facility]) [address] [place], [address], 08/15/2021 08:17:16 08/12/20 21 08/14/2021 IGP, APTIM A HPV note: Parveen bello The Pap smear is a scree pooja test desig silvestre to aid in the detec tion of kristen ligna nt and malig nant condi tions of the uteri ne cervi x. It is not a diagn ostic proce dure and shoul d not be used as the sole means of detec ting cervi anny cance r. Both false -posi tive and false -nega tive repor ts do occur . Not Available [facility] ([facility]) [address] [facility], [place], [address], 08/15/2021 08:17:16 08/12/2008/14/2021 IGP, APTIM A HPV test methodology: Commen t This liqui d based ThinP rep(R ) pap test was nelly rivers with the use of an image guide ivy vizcarra. Not Available [facility] ([facility]) [address] [facility], [place], [address], 08/15/2021 08:17:16 08/12/2008/15/2021 IGP, APTIM A HPV HPV aptima Negati ve negati ve This nucle ic acid ampli ficat ion test detec ts fourt een high- risk HPV types (16,1 8,31, 33,35 ,39,4 5,51, 52,56 ,58,5 9,66, 68) witho ut diffe renti ation . Not Available [facility] ([facility]) [address] [facility], [place], [address], 08/15/2021 08:17:16 08/12/2008/17/2021 NUSWA B VG+, HSV atopobium vaginae Low - 0 score Not Available [facility] ([facility]) [address] [facility], [place], [address], 08/19/2021 11:37:33 08/12/2008/17/2021 NUSWA B VG+, HSV bvab 2 Low - 0 score Not Available [facility] ([facility]) [address] [place], [address], 08/19/2021 11:37:33 08/12/20 21 08/17/2021 NUSWA B VG+, HSV megasphaera 1 Low - 0 score Calcu late total score by soo jorgensen the 3 indiv idual bacte rial vagin osis (BV) marke r score s toget her. Total score is inter prete d as follo ws: Total score 0-1: Indic ates the absen ce of BV. Total score 2: Indet ermin ate for BV. Addit ional clini anny data shoul d be evalu ated to estab chantale a diagn osis. Total score 3-6: Indic ates the prese nce of BV. This test was devel oped and its perfo rmanc e rohan cteri stics deter mined by [facility]. It has not been clear ed or appro joycelyn by the Food and Drug Admin istra tion. Not Available [facility] ([facility]) [address] [facility], [place], [address], 08/19/2021 11:37:33 08/12/2008/17/2021 NUSWA B VG+, HSV cortney albicans, JANES Positi ve negati ve abnormal Not Available [facility] ([facility]) [address] [place], [address], 08/19/2021 11:37:33 08/12/2008/17/2021 NUSWA B VG+, HSV cortney glabrata, JANES Negati ve negati ve Not Available [facility] ([facility]) [address] [place], [address], 08/19/2021 11:37:33 08/12/2008/17/2021 NUSWA B VG+, HSV chlamydia trachomatis, JANES Negati ve negati ve Not Available [facility] ([facility]) [address] [place], [address], 08/19/2021 11:37:33 08/12/2008/17/2021 NUSWA B VG+, HSV neisseria gonorrhoeae, JANES Negati ve negati ve Not Available [facility] ([facility]) [address] [place], [address], 08/19/2021 11:37:33 08/12/20 21 08/19/2021 NUSWA B VG+, HSV trich vag by JANES TNP Test Not Perfo rmed. The speci men submi tted was too visco us for latosha sis. Not Available [facility] ([facility]) [address] [place], [address], 08/19/2021 11:37:33 08/12/20 21 08/19/2021 NUSWA B VG+, HSV hsv 1 JANES Negati ve negati ve Not Available [facility] ([facility]) [address] [place], [address], 08/19/2021 11:37:33 08/12/2008/19/2021 NUSWA B VG+, HSV hsv 2 JANES Negati ve negati ve Not Available [facility] ([facility]) [address] [place], [address], 08/19/2021 11:37:33 08/12/2008/14/2021 STREP GP B JANES strep gp B JANES Positi ve negati ve abnormal Cente rs for Disea se Contr ol and Preve ntion (CDC) and Ameri can Congr ess of Obste trici ans and Gynec ologi sts (ACOG ) guide lines for preve ntion of perin atal group B strep tococ anny (GBS) disea se speci fy co-co llect ion of a vagin al and recta l swab speci men to maxim ize sensi tivit y of GBS detec tion. Per the CDC and ACOG, swabb ing both the lower vagin a and rectu m subst antia lly incre ases the yield of detec tion mendy red with sampl ing the vagin a alone . Penic illin G, ampic illin , or cefaz mariya are indic ated for intra partu m proph ylaxi s of perin atal GBS colon izati on. Refle x susce ptibi lity testi ng shoul d be perfo rmed prior to use of clind amyci n only on GBS isola robbi from penic illin -chalino rgic women who are consi dered a high risk for anaph ylaxi s. Treat ment with vanco mycin witho ut addit ional testi ng is warra nted if resis tance to clind mushtaq n is noted . Not Available [facility] ([facility]) [address] [facility], [place], [address], 08/19/2021 11:37:34 Result Notes None recorded. Problems Name Problem SNOMED Code Status Onset Date Resolution Date Notes Provider Name and Address Organization Details Recorded Time Acute sinusitis 17305002 Active 2017 Rio Machado [place] null, [place] - [facility] 9 12:02:38 24352132 Completed 201701/25/2018 Keaton Meza [place] - [facility] 8 12:12:31 Advanced maternal age 672617253 Completed 2017 Rena Dee [place] [facility] 8 13:05:06 Advanced maternal age 979966629 Active 2017 Rena Dee [place] [facility] 8 13:05:06 Genital herpes simplex type 2 711404154 Completed 2015 Rena Dee [place] [facility] 8 13:05:06 Acute sinusitis 25821771 Completed 2017 Rena Dee [place] [facility] 8 13:05:06 Allergic rhinitis 30035785 Completed Rena Dee [place] [facility] 8 13:05:06 Acute urinary tract infection 172768850 Completed Rena Dee [place] [facility] 8 13:05:06 Tuberculo sis screening Active 2017 Rio Machado [place] [facility] 9 12:02:38 At increased risk of nutrition al deficit 967296557 Active 2019 Cheko Hong PA-C Attn: Rodríguez g,[address] [facility], [place], [address], [place] [facility] 0 16:48:56 Hyperlipi demia screening Active 2019 Cheko Hong PA-C Attn: Rodríguez jorgensen,[address] [facility], [place], [address], [place] [facility] 0 16:50:53 Group B Streptoco ccus carrier 816897784159 3 Active 2020 Keaton [place] muñoz, [place] - [facility] 1 11:48:53 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 70545436 Active 2020 Keaton Susana muñoz, [place] - [facility] 1 11:48:56 Allergic rhinitis 73753305 Active MARIA E Perez, [place] - [facility] 9 12:02:38 Painful urging to urinate 71503929 Completed 01/25/2018 Keaton muñoz [place] - [facility] 8 12:12:36 Acute urinary tract infection 435653145 Active MARIA E [place] [facility] 9 12:02:38 Genital herpes simplex type 2 683494978 Active 2015 Rio Machado [place] [facility] 9 12:02:38 History and physical examinati on, school Completed 201601/25/2018 Keaton muñoz, [place] - [facility] 8 12:12:54 Requires tetanus and diphtheri a vaccinati on 046232228 Completed 201601/25/2018 Keaton muñoz [place] - [facility] 8 12:12:58 History of chickenpo x 340807727 Completed 201601/25/2018 Keaton muñoz, [place] - [facility] 8 12:13:07 Problem Notes None recorded. Procedures Surgical History Date Name Laterality Status Provider Name and Address Organization Details Recorded Time 1 Date of Last Pap Smear completed MARIA E Hyde - [facility] 08/12/2021 15:07:21 8 IUD Insertion completed Rena Dee MA [place] - [facility] 09/04/2018 12:49:08 Imaging Results None recorded. Procedure Notes None recorded. Medical Equipment None Reported. Allergies Allergen ID Allergen Name Allergen Category Reaction Reaction Severity Criticality Documentation Date Start Date Code Code System Note Provider Name and Address Organization Details Recorded Time 56547 banana extract food,medi cation itching severe Not available 05/10/2016 62282 9 RxNorm itchy throa t and swoll en throa t Not Available Not Available Not Available Medications Name Sig Start Date Stop Date Status Note LastModified by Organization Details LastModified Time Prescriptio n - Prior Authorizati on Request 06/28 completed Not Available Not Available Not Available multivitami n tablet Take 1 tablet every day by oral route. 2020 active Not Available Not Available Not Avai lable azithromyci n 250 mg tablet TAKE 2 TABLETS (500 MG) BY ORAL ROUTE ONCE DAILY FOR 1 DAY THEN 1 TABLET (250 MG) BY ORAL ROUTE ONCE DAILY FOR 4 DAYS 06/28 completed Not Available Not Available Not Available ibuprofen 800 mg tablet Take 1 tablet 3 times a day by oral route with meals for 30 days. 01/25 completed Not Available Not Available Not Available fluconazole 150 mg tablet Take 1 tablet by oral route. active Not Available Not Available No t Available valacyclovi r 1 gram tablet 06/28 completed Not Available Not Available Not Available Tubersol 5 tub. unit/0.1 mL intradermal injection solution Inject 0.1 mL by intraderm al route. 01/25 completed Not Available Not Available Not Available penicillin V potassium 500 mg tablet Take 1 tablet every 8 hours by oral route for 7 days. active Not Available Not Available No t Available sulfamethox azole 800 mg-trimetho prim 160 mg tablet Take 1 tablet every 12 hours by oral route for 10 days. 01/25 completed Not Available Not Available Not Available acyclovir 800 mg tablet Take 1 tablet every day by oral route. 06/05 completed Not Available Not Available Not Available Vitamin tablet Take 1 tablet every day by oral route as directed for 30 days. 06/05 completed Not Available Not Available Not Available benzonatate 100 mg capsule Take 1 capsule 3 times a day by oral route. 06/28 completed Not Available Not Available Not Available progesteron e micronized 200 mg capsule Take 1 capsule twice a day by oral route. 03/27 completed Not Available Not Available Not Available ergocalcife rol (vitamin D2) 1,250 mcg (50,000 unit) capsule 08/12 completed Not Available Not Available Not Available fluticasone propionate 50 mcg/actuati on nasal spray,suspe nsion active Not Available Not Available Not Available ParaGard T 380A 380 square mm intrauterin e device Take 1 device by intrauter ine route. 2017 active Not Available Not Available Not Avai lable loratadine 10 mg tablet Take 1 tablet every day by oral route. active Not Available Not Available No t Available amoxicillin 875 mg-potassiu m clavulanate 125 mg tablet Take 1 tablet every 12 hours by oral route. 08/12 completed Not Available Not Available Not Available Calcium with Vitamin D3 600 mg (carbonate) -10 mcg (400 unit) capsule Take 1 capsule twice a day by oral route. 06/28 completed Not Available Not Available Not Available Calcium with Vitamin D 600 mg-10 mcg (400 unit) tablet Take 1 tablet twice a day by oral route. 2020 active Not Available Not Available Not Avai lable calcium 600 mg (as carbonate)- vitamin D3 20 mcg (800 unit) tablet Take 1 tablet twice a day by oral route for 30 days. 01/25 completed Not Available Not Available Not Available PrePlus 27 mg iron-1 mg tablet TAKE 1 TABLET DAILY DIRECTED 06/05 completed Not Available Not Available Not Available Slynd 4 mg (28) tablet Take 1 tablet every day by oral route. 08/12 completed Not Available Not Available Not Available Vitals Date Recorded Body height Body mass index (BMI) Body weight Systolic blood pressure Diastolic blood pressure Provider Name and Address Organization Details Last Updated DateTime 11/23/2018 162.56 cm 27.5 kg/m2 10852.78 g 108 mm[Hg] 74 mm[Hg] Rio Machado [place] - [facility] 9 12:02:15 Date Recorded Body weight Oxygen saturation Oxygen saturation in Arterial blood by Pulse oximetry Heart rate Body temperature Systolic blood pressure Diastolic blood pressure Provider Name and Address Organization Details Last Updated DateTime 0 21897.0 3 g 98 % 98 % 81 /min 98.4 [degF] 122 mm[Hg] 72 mm[Hg] Lanie Perez MA [facility] 0 16:39:54 Date Recorded Body height Body mass index (BMI) Body weight Provider Name and Address Organization Details Last Updated DateTime 06/11/2020 162.56 cm 26.1 kg/m2 34336.04 g Rena Dee MA [facility] 06/11/2020 12:38:28 Date Recorded Body height Body mass index (BMI) Body weight Systolic blood pressure Diastolic blood pressure Provider Name and Address Organization Details Last Updated DateTime 08/12/2021 162.56 cm 25.9 kg/m2 97382.45 g 124 mm[Hg] 76 mm[Hg] Ariana Klein MA [facility] 1 15:11:22 Social History Question Answer Notes LastModified by Organizat ion Details LastModified Time Tobacco Smoking Status Never Smoker Ofelia Raygoza MA null, [facility] 05/10/2016 11:42:34 Do You Have An Advance Directive? No Information not available 12/26/2017 What Is Your Level Of Alcohol Consumption? None Information not available 05/10/2016 If You Are , What Was Your Level Of Alcohol Consumption Prior To ? None [email or web address] Information not available 02/21/2018 Is Anesthesia Consult Planned? No [email or web address] Information not available 02/21/2018 Plan Yes [email or web address] Information no t available 02/21/2018 Is Blood Transfusion Acceptable In An Emergency? Yes [email or web address] Information not available 02/21/2018 What Is Your Level Of Caffeine Consumption? Occasional Information not available 05/10/2016 Live With Cats/exposure To Cat Litter No [email or web address] Information not available 02/21/2018 How Much Tobacco Do You Chew? None [email or web address] Information not available 02/21/2018 Are You Currently Employed? Yes Information not available 12/26/2017 What Type Of Diet Are You Following? REGULAR Information not available 05/10/2016 Do You Or Have You Ever Used E-cigarettes Or Vape? 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 No [email or web address] Information no t available 02/21/2018 Are There Any Guns Present In Your Home? No Information not available 12/26/2017 Hard Of Hearing Or Deaf In One Or Both Ears? No [email or web address] Information not available 02/21/2018 Illicit Drugs Pre- Denies [email or web address] Information not available 02/21/2018 How Many Years Have You Used Illicit Or Recreational Drugs? 0 Information not available 02/21/2018 Legally Blind In One Or Both Eyes? No [email or web address] Information no t available 02/21/2018 Marital Status Informatio n not available 05/10/2016 What Was The Date Of Your Most Recent Tobacco Screening? 08/12/2021 Information not available 08/12/2021 How Many Children Do You Have? 2 Information not available 12/26/2017 Performs Monthly Self-breast Exam? Yes [email or web address] Information no t available 02/21/2018 Do You Use Protection During Sex? No Information not available 12/26/2017 What Is Your Relationship Status? Information not available 12/26/2017 Seat Belts Used Routinely Yes Information not available 12/26/2017 Are You Sexually Active? Yes Information not available 12/26/2017 Smoke Alarm In Home Yes Information not available 12/26/2017 Do You Have Smoke And Carbon Monoxide Detectors In Your Home? Yes [email or web address] Information not available 02/21/2018 Are You Passively Exposed To Smoke? No [email or web address] Information no t available 02/21/2018 Do You Or Have You Ever Used Smokeless Tobacco? Never Used Smokeless Tobacco Information not available 06/11/2020 How Much Tobacco Do You Smoke? No Information not available 05/10/2016 Smoking Pre- No [email or web address] Information not available 02/21/2018 General Stress Level Medium Information not available 05/10/2016 Do You Use Any Illicit Or Recreational Drugs? No Information not available 08/12/2021 Do You Use Sunscreen Routinely? Yes Information not available 12/26/2017 Supplements Pnv [email or web address] Information n ot available 02/21/2018 Has Tobacco Cessation Counseling Been Provided? No Information not available 08/12/2021 On What Date Was Tobacco Cessation Counseling Provided? 06/11/2020 Information not available 06/11/2020 How Many Years Have You Smoked Tobacco? 0 [email or web address] Information not available 06/11/2020 Sex: Unknown Functional Status Question Answer Note LastModified by Organizat ion Details LastModified Time What is your exercise level? Occasional Information not available 05/10/2016 Mental Status None recorded. Family History Relationship Description Onset Age of this Age Resolved Age Notes LastModified by Organization Details LastModified Time Mother Cerebrovascu lar accident [email or web address] Not available 11:41:26 Mother Hypercholest erolemia [email or web address] Not available 2015 11:41:26 Father Heart disease [email or web address] Not available 2015 11:41:26 Father Cerebrovascu lar accident [email or web address] Not available 05/2016 11:43:01 Medical History Condition Response Coronary Artery Disease N Other N High Blood Pressure N Atrial Fibrillation N Depression N COPD N Blood Clots N Headaches/Migraines N Anxiety Disorder N Muscle, Joint, or Bone Problems N Infertility N Polyps N Acid Reflux (GERD) N Cancer N Stroke N Headaches N Kidney or Bladder Problems N Acne N Eating Disorder N Skin Problems N Asthma N Allergies Y Hepatitis N Breast Cancer N Breast Problem N Anesthesia Complications N Endometriosis N High Cholesterol N Liver Disease N Thyroid Problems N GI Problems N Anemia N Heart Attack (NM) N Diabetes N Ovarian Cancer N Blood Transfusions N Seizures/Epilepsy N Abuse/Domestic Violence N Heart Disease N Pre-Eclampsia N Heart Failure N Osteoporosis N Gynecological History Statement/Question Response Abnormal Pap N Flow Light STIs/STDs N HPV Vaccine N Most Recent Mammogram Age at Menarche 14 Current Control Method IUD Age at First Child 26 Sexually Active? Y Menses Monthly No Date of Last Pap Smear 08/12/2021 Sexual Problems? N LMP Approximate Desired Control Method IUD Obstetrics History GPAL:G 3 P 3 0 0 3 Type Value Multiple Births 0 Full Term 3 Induced 0 Spontaneous 0 Premature 0 Living 3 Ectopics 0 Total 3 Immunizations Vaccine Type Date Status Note Provider Nam e and Address Organization Details Recorded Time COVID-19 vaccine, vector-nr, rS-Ad26, PF, 0.5 mL 01/29/2021 [facility] 04/22/2021 12:56:22 Tdap 03/10/2017 completed Not Available [facility] 11/10/2019 02:33:32 Tdap 04/25/2018 completed Not Available [facility] 11/10/2019 02:35:51 Past Encounters Encounter ID Performer Location Encounter Start Date Encounter Closed Date Diagnosis/Indication Diagnosis SNOMED-CT Code Diagnosis ICD10 Code Diagnosis Note [id number] ANGELA Kee (Adult Med) [address] [place] [id number] 05/10/2016 11:21:53 05/10/2016 12:03:54 Allergic rhinitis 23223561 J30.9 Hyperlipid emia screening 234066072 Z13.220 Anemia screening 4428532 07 Z13.0 [id number] ANGELA Kee (Adult Med) [address] [place] [address] [id number] 0 07/12/2016 09:41:04 07/12/2016 17:59:22 Allergic rhinitis 44283707 J30.9 Painful ur ging to urinate 97836353 R30.0 [id number] Keaton Monique (SQL ARCHITECT) [address] [place] [address] [id number] 0 09/30/2016 10:45:40 10/01/2016 15:46:48 Gynecologic examination 33015090 Z01.724 [id number] ANGELA Kee (Adult Med) [address] [place] [address] [id number] 0 10/01/2016 10:34:53 10/05/2016 10:57:13 Allergic rhinitis 14501124 J30.9 [id number] ANGELA Kee (Adult Med) [address] [place] [address] [id number] 0 03/10/2017 12:30:10 03/10/2017 13:24:08 History and physical examination, [facility] 98298085 Z02.0 Requires t etanus and diphtheria vaccination 508647785 Z28.3 History of chickenpox 16 0633997 Z86.19 [id number] Amber Monique (Adult Med) [address] [place] [address] [id number] 0 03/22/2017 12:40:20 03/24/2017 10:39:36 Tuberculosis screening 197616295 Z11.1 [id number] ANGELA Kee (Adult Med) [address] [place] [address] [id number] 0 10/28/2017 10:20:32 10/28/2017 11:48:11 Acute sinusitis 54590233 J01.90 Allergic rhinitis 245423 04 J30.9 [id number] Keaton Monique ([employer]CHITECT) [address] [place] [address] [id number] 0 12/26/2017 10:46:39 12/26/2017 12:30:30 Routine care 599911830 Z34.90 Advanced m aternal age 272754726 O09.521 Genital he rpes simplex type 2 260572358 A60.00 Abnormal progesterone 13 7357778 R94.7 [id number] YOAN Nance ([employer] ARCHITECT) [address] [place] [address] [id number] 0 01/13/2018 10:21:06 01/13/2018 15:26:53 Routine care 595907874 Z34.90 [id number] Keaton Monique (SQL ARCHITECT) [address] [place] [address] [id number] 0 01/25/2018 10:59:54 01/25/2018 13:11:05 Routine care 721396949 Z34.90 Advanced m aternal age 967395997 O09.318 [id number] Keaton Monique ([employer] ARCHITECT) [address] [place] [address] [id number] 0 02/21/2018 10:09:19 02/21/2018 13:25:36 Routine care 392499017 Z34.90 Abnormal progesterone 13 0275905 R94.7 Advanced m aternal age 316817318 O09.192 [id number] Keaton Monique (SQL ARCHITECT) [address] [place] [address] [id number] 0 03/27/2018 10:43:46 03/28/2018 11:08:36 Routine care 894269811 Z34.90 Advanced m aternal age 415164445 O09.521 Genital he rpes simplex type 2 123297340 A60.00 [id number] Keaton Monique (SQL ARCHITECT) [address] [place] [address] [id number] 0 04/25/2018 09:59:44 04/25/2018 10:58:01 Routine care 943862417 Z34.90 Genital he rpes simplex type 2 394218026 A60.00 Advanced m aternal age 593288453 O09.592 [id number] Keaton Monique ([employer] ARCHITECT) [address] [place] [address] [id number] 0 05/17/2018 15:07:38 05/17/2018 16:21:31 Routine care 914623822 Z34.90 Family tobi nning surveillance 798706030 Z30.09 [id number] Keaton Monique ([employer] ARCHITECT) [address] [place] [address] [id number] 0 05/31/2018 11:45:08 05/31/2018 12:48:00 Routine care 503906198 Z34.90 Advanced m aternal age 390248576 O09.521 Genital he rpes simplex type 2 745996231 A60.00 [id number] Keaton Monique ([employer] ARCHITECT) [address] [place] [address] [id number] 0 06/14/2018 10:45:26 06/14/2018 11:14:26 Routine care 968220648 Z34.90 Advanced m aternal age 193349749 O09.521 Genital he rpes simplex type 2 823122959 A60.00 [id number] Keaton Monique (SQL ARCHITECT) [address] [place] [address] [id number] 0 06/28/2018 10:11:12 06/28/2018 11:35:28 Routine care 442999053 Z34.90 Lab work will be done at [facility] m aternal age 760396438 O09.521 Patient given order for 3rd trimester ultrasound but does not want it Genital he rpes simplex type 2 275455049 A60.00 [id number] Keaton Monique (SQL ARCHITECT) [address] [place] [address] [id number] 0 07/05/2018 10:20:17 07/05/2018 10:51:43 Routine care 272434497 Z34.90 Lab work will be done at [facility] aternal age 074985442 O09.521 Patient given order for 3rd trimester ultrasound but does not want it Genital he rpes simplex type 2 788074792 A60.00 Allergic rhinitis 507894 04 J30.9 [id number] Keaton Monique (SQL ARCHITECT) [address] [place] [address] [id number] 0 07/13/2018 12:23:57 07/13/2018 12:54:56 Routine care 831459610 Z34.90 Lab work will be done at [facility] [id number] Keaton Monique (SQL ARCHITECT) [address] [place] [address] [id number] 0 07/18/2018 14:28:38 07/18/2018 15:29:35 Advanced maternal age 489265065 O09.521 Patient given order for 3rd trimester ultrasound but does not want it Genital he rpes simplex type 2 801520387 A60.00 Routine an tenatal care 735986313 Z34.90 Lab work will be done at [facility] [id number] Keaton Monique (SQL ARCHITECT) [address] [place] [address] [id number] 0 09/04/2018 11:28:51 09/04/2018 13:41:42 care 026895305 Z39.2 Exposure t o sexually transmissible disorder [id number] Z20.2 Insertion of intrauterine contraceptive device 73890290 Z30.430 Genital he rpes simplex type 2 [id number] A60.00 [id number] ANGELA Kee (Adult Med) [address] [place] [address] [phone] 10/10/2018 17:38:48 10/11/2018 10:46:12 Tuberculosis screening 560070119 Z11.1 [id number] MARIA E Hyde (Adult Med) [address] [place] [address] [phone] 0 10/20/2018 16:36:20 10/23/2018 09:08:04 Tuberculosis screening 664229237 Z11.1 [id number] Keaton Monique (SQL ARCHITECT) [address] [place] [address] [phone] 11/23/2018 11:48:13 11/24/2018 09:41:44 Family planning surveillance 867282913 Z30.09 Surveillan ce of intrauterine device contraception done [id number] 15077 Z30.40 [id number] ANGELA Kee (Adult Med) [address] [place] [address] [phone] 0 06/05/2020 16:20:22 06/06/2020 09:51:32 Upper respiratory infection 15864282 J06.9 Acute urin jaison tract infection 668446126 N39.0 Allergic rhinitis 836329 04 J30.9 At [facility] risk of nutritional deficit 699568835 Z91.89 Hyperlipid emia screening 030913535 Z13.220 Acute sinusitis 07391833 J01.90 [id number] Keaton Monique (SQL ARCHITECT) [address] [place] [address] [phone] 0 06/11/2020 09:47:04 06/12/2020 10:05:15 Family planning surveillance 437237893 Z30.09 paraguard check? [id number] Keaton Monique (SQL ARCHITECT) [address] [place] [address] [phone] 08/12/2021 14:42:29 08/13/2021 11:12:24 Gynecologic examination 08100317 Z01.419 Family tobi nning surveillance 412999503 Z30.09 paraguard check - in place Genital he rpes simplex type 2 332064851 A60.00 Exposure t o sexually transmissible disorder 954477014 Z20.2 Health Concerns Section Related Observation LastModified by Organization Detai ls LastModified Time None Recorded Concern Status LastModified by Organization Details LastModified Time None Recorded Advance Directives Directive N: Payers Encounter Date Sequence Insurance Name Policy Number Policy Naik Covered Member ID Naik Member ID Guarantor Name 10/20/2018 1 [place] [id number] Irineo Venelinov [id number] Marily Georgieva-V enelinova 11/23/2018 1 [place] [id number] Irineo Venelinov [id number] Marily Georgieva-V enelinova 06/05/2020 1 [facility] [id number] Marily Georgieva- Venelinova [id number] Marily Georgieva-V enelinova 06/11/2020 1 [facility] [id number] Marily Georgieva- Venelinova [id number] Marily Georgieva-V enelinova 08/12/2021 1 [facility] [id number] Marily Georgieva- Venelinova [id number] Marily Georgieva-V enelinova Notes Date Note Type Note Provider Name and Address Organization Details Recorded Time 11/23/2018 text/html 38 yo CF he re for IUD check. CALEB Espinoza SIMEGAN 11/23/2018 19:38:36 06/05/2020 text/html no fever , but congested sinus pressure Cheko Hong PA-C Attn: Accounting[address] [place], [address], [place] [facility] 06/09/2020 11:05:48 06/11/2020 text/html 40 yo with hx pf UTI, HSV2 CF present for phone visit for IUD check. She complains of bleeding for 2 years between periods described as light to moderate, dark brown. CALEB Espinoza SIMEGAN 06/11/2020 17:55:44 08/12/2021 text/html 40 yo F wit h hx pf UTI, HSV2 CF present for annual well woman exam. LAst pap 2018 normal. CALEB Espinoza SIMEGAN 08/12/2021 16:51:52 08/12/2021 text/html Annual GYNReport ed bypatient.Menstrua l cycle:Normal menses Urinary symptoms:No hematuria; No incontinence Vulva:No genital lesion Vagina:Normal vaginal discharge Breast:No breast pain; No breast lump; No nipple discharge Sexual complaints:No sexual complaints; No pain during intercourse; Normal libido Menopausal Symptoms:No menopausal symptoms; Normal vaginal lubrication Psychological symptoms:No depression; No anxiety; No PMDD Keaton muñoz [place] - [place] 08/12/2021 16:51:52 OBGyn Episode Ob Episode Information Episode Created Date Number of Fetuses Patient Bloodtype Patient rh Status Prepregnancy Weight lbs Domestic Partner Domestic Partner Phone Father Name Commercial Lender Status 09/30/20 16 1 CLOSED Fetus Data First Name Last Name Admitted to NICU Weight (g) Sex Living Outcome Pediatric Complications Fetus ID Race Codes Race Delivery Type 3855.53 2 F Full Term [id number] Vaginal Jhoan Calculation Initial Jhoan Date Initial Exam Date Initial Exam Provider Initial Ultrasound Date Last Menstrual Period Date Ultra Sound Weeks Gestation 0 Eighteen To Twenty Week Jhoan Update Ultra Sound Date Fundal Height At Umbil Quickening Date Ultra Sound Latest Weeks Gestation Final Jhoan Confirmed By Final Jhoan Confirmed Date Final Jhoan Date Ultra Sound Latest Days Gestation 0 0 Menstrual History Last Menstrual Date Menses Monthly On Bcp Conception Prior Menses Frequency Hcg Plus Date Menarche Onset Age Delivery Information Delivery Date Delivery Type Labor Anesthesia Weeks Gestation Incision Type Labor Labor Length Hrs Delivered By Post Complications Tubal Sterilization Discharge Date Comments 7 None bulgar[place] Discharge Information Feeding Method Contraceptive Method Maternal HG B and HCT Levels Ob Episode Information Episode Created Date Number of Fetuses Patient Bloodtype Patient rh Status Prepregnancy Weight lbs Domestic Partner Domestic Partner Phone Father Name Commercial Lender Status 09/30/20 16 1 CLOSED Fetus Data First Name Last Name Admitted to NICU Weight (g) Sex Living Outcome Pediatric Complications Fetus ID Race Codes Race Delivery Type 3912.23 1 M Full Term [id number] Vaginal Jhoan Calculation Initial Jhoan Date Initial Exam Date Initial Exam Provider Initial Ultrasound Date Last Menstrual Period Date Ultra Sound Weeks Gestation 0 Eighteen To Twenty Week Jhoan Update Ultra Sound Date Fundal Height At Umbil Quickening Date Ultra Sound Latest Weeks Gestation Final Jhoan Confirmed By Final Jhoan Confirmed Date Final Jhoan Date Ultra Sound Latest Days Gestation 0 0 Menstrual History Last Menstrual Date Menses Monthly On Bcp Conception Prior Menses Frequency Hcg Plus Date Menarche Onset Age Delivery Information Delivery Date Delivery Type Labor Anesthesia Weeks Gestation Incision Type Labor Labor Length Hrs Delivered By Post Complications Tubal Sterilization Discharge Date Comments 2 None Discharge Information Feeding Method Contraceptive Method Maternal HG B and HCT Levels Ob Episode Information Episode Created Date Number of Fetuses Patient Bloodtype Patient rh Status Prepregnancy Weight lbs Domestic Partner Domestic Partner Phone Father Name Commercial Lender Status 12/27/19 18 1 [address] Zair[address] n [address] ov Dr[address] Cruz and Dr. Islas CLOSED Fetus Data First Name Last Name Admitted to NICU Weight (g) Sex Living Outcome Pediatric Complications Fetus ID Race Codes Race Delivery Type Rosalind e Valent inova Venel inova false 3316.89 15 F true Full Term [id number] 2106-3 White Standard Vaginal Delivery Problems Problem Notes 03/27/18 baby girl, Nadine, middle name tbd Venelinova, breast feed, NCB NO EPEDURAL!!, Peds Dr. Anthony MD, [facility] Paragard IUD cb-rma verified 06/28/2018 mds Problem Name Start Date End Date Resolution Snomed Code Not e Acute sinusitis 10/28/2017 [id number] Genital herpes simplex type 2 10/05/2016 128512316 Advanced maternal age 12/26/2017 218126180 Acute urinary tract infection 289045451 Allergic rhinitis 04838199 Jhoan Calculation Initial Jhoan Date Initial Exam Date Initial Exam Provider Initial Ultrasound Date Last Menstrual Period Date Ultra Sound Weeks Gestation 07/24/2018 12/26/2017 [email or web address] 01/03/2018 10/23/2017 11 Eighteen To Twenty Week Jhoan Update Ultra Sound Date Fundal Height At Umbil Quickening Date Ultra Sound Latest Weeks Gestation Final Jhoan Confirmed By Final Jhoan Confirmed Date Final Jhoan Date Ultra Sound Latest Days Gestation 01/04/20 18 11 [email or web address] 01/25/2018 07/24/20 18 1 Pre-sheba Flowsheet Flowsheet Date 12/26/2017 Sanchez Score Blood Edema Fundus Height Fundus Units Glucose Ketones Leukocytes Nitrite Labor Signs Protein Cervic Dilation Cervic Effacement Cervic Station none Type Weight in lbs Pre/Post Dialysis Refused 145.2758193331 BP Diastolic BP Location Tested BP Systolic BP Type 74 106 Fetus Heart Rate Present Fetus Movement Comments Flowsheet Date 01/13/2018 Sanchez Score Blood Edema Fundus Height Fundus Units Glucose Ketones Leukocytes Nitrite Labor Signs Protein Cervic Dilation Cervic Effacement Cervic Station Type Weight in lbs Pre/Post Dialysis Refused BP Diastolic BP Location Tested BP Systolic BP Type Fetus Heart Rate Present Fetus Movement Comments Flowsheet Date 01/25/2018 Sanchez Score Blood Edema Fundus Height Fundus Units Glucose Ketones Leukocytes Nitrite Labor Signs Protein Cervic Dilation Cervic Effacement Cervic Station neg none 14 wks none negative none neg Type Weight in lbs Pre/Post Dialysis Refused 150.776071918771 BP Diastolic BP Location Tested BP Systolic BP Type 70 104 sitting Fetus Heart Rate Present A 166 Present Fetus Movement A No Comments afp next/ us Flowsheet Date 02/21/2018 Sanchez Score Blood Edema Fundus Height Fundus Units Glucose Ketones Leukocytes Nitrite Labor Signs Protein Cervic Dilation Cervic Effacement Cervic Station none 18 wks Type Weight in lbs Pre/Post Dialysis Refused 154.431474183872 BP Diastolic BP Location Tested BP Systolic BP Type 68 104 sitting Fetus Heart Rate Present Fetus Movement Comments AFP and progesterone drawn t regla. Order for level 2 US given today. Flowsheet Date 03/27/2018 Sanchez Score Blood Edema Fundus Height Fundus Units Glucose Ketones Leukocytes Nitrite Labor Signs Protein Cervic Dilation Cervic Effacement Cervic Station neg none 23 wks none negative none neg Type Weight in lbs Pre/Post Dialysis Refused 158.187822730084 BP Diastolic BP Location Tested BP Systolic BP Type Fetus Heart Rate Present A 150 Present Fetus Movement A Yes Comments [facility]RON. UA obtained. CBC and gl ucose gestational screen ordered. Baby name - Nadine. Flowsheet Date 04/25/2018 Sanchez Score Blood Edema Fundus Height Fundus Units Glucose Ketones Leukocytes Nitrite Labor Signs Protein Cervic Dilation Cervic Effacement Cervic Station neg none 27 cm none negative none neg Type Weight in lbs Pre/Post Dialysis Refused 166.205559826106 BP Diastolic BP Location Tested BP Systolic BP Type 58 110 sitting Fetus Heart Rate Present A 154 Present Fetus Movement A Yes Comments Waiting on AFP from outside lab. Girl- Adam. Plans to breastfeed. PP BC - nonhormonal IUD. Does not want epidural. Flowsheet Date 05/17/2018 Sanchez Score Blood Edema Fundus Height Fundus Units Glucose Ketones Leukocytes Nitrite Labor Signs Protein Cervic Dilation Cervic Effacement Cervic Station neg none 30 wks none negative none neg Type Weight in lbs Pre/Post Dialysis Refused 168.085417377134 BP Diastolic BP Location Tested BP Systolic BP Type 60 100 sitting Fetus Heart Rate Present A 145 Present Fetus Movement A Yes Comments Flowsheet Date 05/31/2018 Sanchez Score Blood Edema Fundus Height Fundus Units Glucose Ketones Leukocytes Nitrite Labor Signs Protein Cervic Dilation Cervic Effacement Cervic Station neg none 32 wks none negative none neg Type Weight in lbs Pre/Post Dialysis Refused 171.144002929544 BP Diastolic BP Location Tested BP Systolic BP Type 66 104 sitting Fetus Heart Rate Present A 143 Present Fetus Movement A Yes Comments Flowsheet Date 06/14/2018 Sanchez Score Blood Edema Fundus Height Fundus Units Glucose Ketones Leukocytes Nitrite Labor Signs Protein Cervic Dilation Cervic Effacement Cervic Station neg none 34 wks none negative none neg Type Weight in lbs Pre/Post Dialysis Refused 171.857641604203 BP Diastolic BP Location Tested BP Systolic BP Type 58 98 sitting Fetus Heart Rate Present A 150 Present Fetus Movement A Yes Comments Flowsheet Date 06/28/2018 Sanchez Score Blood Edema Fundus Height Fundus Units Glucose Ketones Leukocytes Nitrite Labor Signs Protein Cervic Dilation Cervic Effacement Cervic Station neg none 36 wks none negative none neg 0cm 0% - 4 Type Weight in lbs Pre/Post Dialysis Refused 173.881382111476 BP Diastolic BP Location Tested BP Systolic BP Type 58 98 sitting Fetus Heart Rate Present A 150 Present Fetus Movement A Yes Comments 38 yo at 36.2wks. Sh dax will get her labs done at [facility] today. Offered a 3rd trimester US but patient is unsure if she wants. Flowsheet Date 07/05/2018 Sanchez Score Blood Edema Fundus Height Fundus Units Glucose Ketones Leukocytes Nitrite Labor Signs Protein Cervic Dilation Cervic Effacement Cervic Station neg none 37 wks none negative none neg 0cm 0% - 4 Type Weight in lbs Pre/Post Dialysis Refused 172.538293098832 BP Diastolic BP Location Tested BP Systolic BP Type 68 100 sitting Fetus Heart Rate Present A 144 Present Fetus Movement A Yes Comments wtc/wlb Flowsheet Date 07/13/2018 Sanchez Score Blood Edema Fundus Height Fundus Units Glucose Ketones Leukocytes Nitrite Labor Signs Protein Cervic Dilation Cervic Effacement Cervic Station neg none 38 cm none negative none neg 0cm 0% - 4 Type Weight in lbs Pre/Post Dialysis Refused 174.32628067658 BP Diastolic BP Location Tested BP Systolic BP Type 66 106 sitting Fetus Heart Rate Present A 154 Present Fetus Movement A Yes Comments wtc/wlb Flowsheet Date 07/18/2018 Sanchez Score Blood Edema Fundus Height Fundus Units Glucose Ketones Leukocytes Nitrite Labor Signs Protein Cervic Dilation Cervic Effacement Cervic Station neg 39.5 cm none trace none neg 0cm 0% -4 Type Weight in lbs Pre/Post Dialysis Refused 177.052921657918 BP Diastolic BP Location Tested BP Systolic BP Type 70 118 sitting Fetus Heart Rate Present A 143 Present Fetus Movement A Yes Comments Flowsheet Date 09/04/2018 Sanchez Score Blood Edema Fundus Height Fundus Units Glucose Ketones Leukocytes Nitrite Labor Signs Protein Cervic Dilation Cervic Effacement Cervic Station Type Weight in lbs Pre/Post Dialysis Refused 160.027036121526 BP Diastolic BP Location Tested BP Systolic BP Type 70 120 sitting Fetus Heart Rate Present Fetus Movement Comments Menstrual History Last Menstrual Date Menses Monthly On Bcp Conception Prior Menses Frequency Hcg Plus Date Menarche Onset Age 1210/23/2017 true false 10/23/2017 5 12/27/19 1 8 13 Genetic Screening And Infection History Question Response Note Patient's Age Will Be 35 Yea rs Or Older At Estimated Date of Delivery true Thalassemia (Persian, Armenian, Mediterranean, Or Background): MCV < 80 false Neural Tube Defect (Meningomyelocele, Spina Bifi da, Or Anencephaly) false Congenital Heart Defect false Down Syndrome false Twin-Sachs (eg, Congregational, Cajun, Arabic-Ukrainian) f alse Lauren Disease false Sickle Cell Disease Or Trait () false Hemophilia Or Other Blood Disorders false Muscular Dystrophy false Cystic Fibrosis false Keya Paha's Chorea false Mental Retardation/Autism false If Yes, Was Person Tested For Fragile X? false Other Inherited Genetic Or Chromosomal Disorder false Maternal Metabolic Disorder (eg, Type 1 Diabetes , PKU) false Patient Or Baby's Father Had A Child With Defects Not Listed Above false Recurrent Loss, Or A Stillbirth false Medications (including Suppl ements, Vitamins, Herbs, OTC Drugs), Illicit/Recreational Drugs, Alcohol true see list If Yes, Agent(s) And Strength/Dosage false Any Other Genetic History false Live With Someone With TB Or Exposed To TB false Patient Or Partner Has History Of Genital Herpes true Rash Or Viral Illness Since Last Menstrual Perio d false History Of STD, Gonorrhea, Chlamydia, HPV, Syphi lis false Other Infection History false Plans and Education First Trimester Discussed Date Discussion Item Discussion Note Discuss ed By 01/13/2018 Anticipated course o f care [email or web address] 01/13/2018 Alcohol [email or web address] 01/13/2018 Intimate partner violence [email or web address] 01/13/2018 Environmental/work hazards r [email or web address] 01/13/2018 Screening for aneuploidy [email or web address] 01/13/2018 Nutrition counseling ; special diet; dietary precautions (mercury, listeriosis) [email or web address] 01/13/2018 Childbirth classes/h ospital facilities [email or web address] 01/13/2018 HIV and other routin e tests [email or web address] 01/13/2018 Risk factors identif ied by history [email or web address] 01/13/2018 Weight gain counseling [email or web address] [email or web address] 01/13/2018 Exercise [email or web address] 01/13/2018 Teratogens [email or web address] 01/13/2018 Use of any medicatio ns (including supplements, vitamins, herbs, or OTC drugs) [email or web address] 01/13/2018 03/27/18 breast feed, cb-rma [email or web address] 01/13/2018 Sexual activity [email or web address] 01/13/2018 Tobacco/smoking cess ation counseling (ask, advise, assess, assist, and arrange) [email or web address] 01/13/2018 Illicit/recreational drugs r [email or web address] 01/13/2018 Dental care [email or web address] 01/13/2018 Travel [email or web address] 01/13/2018 Seat belt use [email or web address] 01/13/2018 Indications for ultrasonography [email or web address] 01/13/2018 Avoidance of saunas or hot tubs [email or web address] 01/13/2018 Toxoplasmosis precau tions (cats/raw meat) [email or web address] Second Trimester Discussed Date Discussion Item Discussion Note Discuss ed By 03/27/2018 Selecting a care provider 03/27/18 Dr. Anthony MD, cb-rma [email or web address] 03/27/2018 family planning/tubal sterilization 05/17/18 PPBC Paragard IUD, ordered 05/17/18 cb-rma [email or web address] 03/27/2018 Depression screening (when indicated) [email or web address] 03/27/2018 Abnormal lab values [email or web address] 03/27/2018 Signs and symptoms o f labor [email or web address] 03/27/2018 Intimate partner violence cb [email or web address] 03/27/2018 Tobacco/smoking cess ation counseling (ask, advise, assess, assist, and arrange) [facility] Third Trimester Discussed Date Discussion Item Discussion Note Discuss ed By 03/27/2018 Anesthesia plans 03/27/18 NCB NO EPIDURAL, cb-rma [email or web address] 03/27/2018 Circumcision 03/27/18 baby gi rl, no to circ if boy, , cb-rma aw5 06/28/2018 movement monitoring ms 03/27/2018 03/27/18 breast feed, cb-rm a aw5 06/28/2018 Labor signs given wtc/wlb [email or web address] Delivery Information Delivery Date Delivery Type Labor Anesthesia Weeks Gestation Incision Type Labor Labor Length Hrs Delivered By Post Complications Tubal Sterilization Discharge Date Comments 8 Sponta neous Local [address] Meza None false 07/25/2018 Pediatric mario: Dr. Cruz Discharge Information Feeding Method Contraceptive Method Maternal HG B and HCT Levels Breast Paragard IUD
--- OUTSIDE RECORDS SUMMARY | 2025-01-01 16:49 | XMS_ITS | Referral Summary ---
Author Organization [facility] Address [address] [place] [address] Care Team Providers Care Dry Pan Charger Name Role Phone Sri Roque PA-C Primary Care Provider Source Comments [facility] and Associated [facility]ician Practices is amultiple site organization consisting of ambulatory clinics and hospital sitesin [place], [place], [place] and [place]. This disclosure is being madepursuant to the Care Everywhere program and may not contain all information available regarding this patient. Last updated 18.[facility] Allergies Active Allergy Reactions Criticality Noted Date Comments Food GI Discomfort 01/20/2018 Pt allergic to bananas Medications * Be aware that medications may not be up to date on this document. Alwaysverify current medications with the patient. Medication Sig Dispensed Refills Start Date End Date Status Ehcjfpny-Ial-Lb-FA ( VITAMIN WITH IRON) tabletIndications:Pre gnancy Take 1 tablet by mouth once daily Reasons: Active Active Problems Problem Noted Date Diagnosed Date Advanced maternal age in multigravida 01/20/2018 Herpes genitalis 01/20/2018 History of chickenpox 01/20/2018 Overview (01/20/2018): Chickenpox 03/10/2017 Social History Tobacco Use Types Packs/Day Years [...] AM CDT Body Mass Index - - Plan of Treatment Not on file Care Teams Dry Pan Charger Relationship Specialty Start Date End Date Sri Roque PA-C PCP - General Family Medicine 10/31/18
--- OUTSIDE RECORDS SUMMARY | 2025-01-01 16:49 | XMS_ITS | Clinical Summary ---
Author Organization [facility] [employer] Address [address] [place] [address] Care Team Providers Care Envelope Adjuster Name Role Phone Sri Roque PA-C Primary Care Provider [phone] Source Comments [facility] and Associated [facility]ician Practices is amultiple site organization consisting of ambulatory clinics and hospital sitesin [place], [place], [place] and [place]. This disclosure is being madepursuant to the Care Everywhere program and may not contain all information available regarding this patient. Last updated 18.[facility] [employer] Allergies Active Allergy Reactions Criticality Noted Date Comments Food GI Discomfort 01/20/2018 Pt allergic to bananas Medications * Be aware that medications may not be up to date on this document. Alwaysverify current medications with the patient. Medication Sig Dispensed Refills Start Date End Date Status Yyzcnwrk-Ady-Oq-FA ( VITAMIN WITH IRON) tabletIndications:Pre gnancy Take [...] Mass Index - - Plan of Treatment Health Maintenance Due Date Last Done Comments LIPID TESTING 1981 MAMMOGRAM 1981 PAP SMEAR 1981 HIV SCREENING 1996 HEPATITIS C SCREENING 04/25/1999 DTAP/TDAP/TD VACCINES (1 - Tdap) 2000 HEPATITIS B VACCINE (1 of 3 - 19+ 3-dose series) 2000 COVID-19 VACCINE ( - 2023-2 5 season) 2024 INFLUENZA VACCINE (#1) 2024 DEPRESSION SCREENING 10/24/2024 ZOSTER VACCINE (1 of 2) 2031 HIB VACCINE Aged Out No longer eligi ble based on patient's age to complete this topic HPV VACCINE Aged Out No longer eligi ble based on patient's age to complete this topic MENINGOCOCCAL (Group B) VACCINE Aged Out No longer eligible based on patient's age to complete this topic MENINGOCOCCAL VACCINE Aged Out No archana daniel eligible based on patient's age to complete this topic PNEUMOCOCCAL VACCINE Aged Out No long er eligible based on patient's age to complete this topic Care Teams Envelope Adjuster Relationship Specialty Start Date End Date Sri Roque PA-C PCP - General Family Medicine 10/31/18
== END 2025-01-01 14:48 | disposition home or self-care (01) ==
LOC: ANHIMG 14:48
PROVIDERS: PCP Family Medicine; Visit Provider Student in an Organized Health Care Education/Training Program
DX: Z12.31 Encounter for screening mammogram for malignant neoplasm of breast (principal)
CPT/HCPCS: 77063; 77067

== ENCOUNTER 2025-02-20 09:32 | Outpatient (CLI) | payer OTHER, SELFPAY ==
--- OUTSIDE RECORDS SUMMARY | 2025-02-20 10:22 | XMS_ITS | Clinical Summary ---
Author Organization [facility] [employer] Address [address] [place] [address] Care Team Providers Care Maintenance Apprentice Name Role Phone Sri Roque PA-C Primary Care Provider [phone] Source Comments [facility] and Associated Physician Practices is amultiple site organization consisting of ambulatory clinics and hospital sitesin [place], [place], [place] and [place]. This disclosure is being madepursuant to the Care Everywhere program and may not contain all information available regarding this patient. Last updated 18.[facility] [employer] Allergies Active Allergy Reactions Criticality Noted Date Comments Food GI Discomfort 01/20/2018 Pt allergic to bananas Medications * Be aware that medications may not be up to date on this document. Alwaysverify current medications with the patient. Etegtoex-Hbs-Vx -FA ( VITAMIN WITH IRON) tabletIndicatio ns: Take 1 tablet by mouth once daily [...] drink = 0.6 oz pur e alcohol) Comments No Sex and Gender Information Value Date Recorded Sex Assigned at Not on file Legal Sex Female 12:50 PM CDT Gender Identity Not on file Sexual Orientation [...] Done Comments LIPID TESTING 1981 MAMMOGRAM 1981 HIV SCREENING 1996 HEPATITIS C SCREENING 04/25/1999 DTAP/TDAP/TD VACCINES (1 - Tdap) 2000 HEPATITIS B VACCINE (1 of 3 - 19+ 3-dose series) 2000 COVID-19 VACCINE ( - 2023-2 5 season) 2024 DEPRESSION SCREENING 10/24/2024 INFLUENZA VACCINE (Season Ended) 2025 ZOSTER VACCINE (1 of 2) 2031 HIB VACCINE Aged Out No longer eligi ble based on patient's age to complete this topic HPV VACCINE Aged Out No longer eligi ble based on patient's age to complete this topic MENINGOCOCCAL (Group B) VACC INE SHARED DECISION-MAKING Aged Out No longer eligibl e based on patient's age to complete this topic MENINGOCOCCAL GROUPS A/C/Y/W VACCINE Aged Out No longer eligible b ased on patient's age to complete this topic PNEUMOCOCCAL VACCINE Aged Out No long er eligible based on patient's age to complete this topic Insurance Care Teams Maintenance Apprentice Relationship Specialty Start Date End Date Sri Roque PA-C PCP - General Family Medicine 10/31/18
--- OUTSIDE RECORDS SUMMARY | 2025-02-20 10:22 | XMS_ITS | Data Portability ---
Author Organization [place] [facility] [employer], Main Office Address [address] [place] [address] Assessment No assessment recorded. Plan of Treatment Reminders Order Date Submit Date Provider Last Modified By Organization Details Last Modified Time Details Appointments None recorded. Lab HbA1c (hemoglobin A1c), blood 2022 023 [facility] Radha EDWARD, [address], [place], [address], 3 14:51:03 vitamin D, 25-hydroxy, total, serum 2022 [facility], [address], [place], [address], 3 14:51:03 CMP, serum or plasma 2022 023 [facility], [address], [place], [address], 3 14:51:03 CBC w/ auto diff 2022 023 [facility], [address], [place], [address], 3 14:51:04 TSH + free T4, serum 2022 023 [facility] Radha EDWARD, [place], [address], 3 14:51:04 lipid panel, serum 2022 023 [facility] Radha [facility], [place], [address], 3 14:51:04 hepatitis panel (A+B+C), acute, serum 2022 023 [place] [address] [facility], [address], [place], [address], 3 14:51:03 gamma-gluta myl transferase (ggt), serum 2022 023 [place] [address] [facility], [address], [place], [address], 3 14:51:03 Referral None recorded. Procedures None recorded. Surgeries None recorded. Imaging US, liver 2022 023 LENNY Not available 3 10:14:45 Medication Orders cholecalcif kade (vitamin D3) 1,250 mcg (50,000 unit) capsule 2022 023 LENNY [facility], [address] [place] [address], [place], [address], 3 16:07:46 Patient TargetsNo targets recorded. Patient InstructionsNo instructions recorded. Reason for Referral None Reported. Results Created Date Observation Date Name Description Value Unit Range Abnormal Flag Note LastModifiedBy Organization Detail LastModifiedTime 06/23/20 21 06/23/2021 scree pooja breas t refugio, bilat [facility] [address] [address] [phone] Patien t Name: TRISTON BLANK NA Access ion #: [id number] Sex: F : 1979 7 Locati on: RAD Attend ing Physic mario: ADA QUEEN Orderi Physic mario: ADA QUEEN Exam Date: 021 9:44 AM Exam Name: MG GUTIERREZ BREAST REFUGIO BILAT Admitt ing Diagno sis(es ): MAMMOG JASON REPORT - FINAL EXAM: MG GUTIERREZ BREAST REFUGIO BILAT HISTOR Y: SCREEN ING MAMMOG WILLY 41-yea r-old female with no curren t breast compla ints. COMPAR SHARMAINE: None availa ble, baseli ne study. TECHNI QUE: Bilate ral CC and MLO views of the breast s were perfor med. Digita l Mammog jason images were obtain ed. CAD (compu ter assist ed detect ion) was utiliz ed. 3D Digita l breast tomosy nthesi s was perfor med and used in the interp retati on of images . FINDIN GS: The breast s are hetero geneou sly dense, which may obscur e small masses . No masses , asymme tries, suspic ious calcif icatio ns, or marie ectura l Page 1 of 2 [facility] Linda bello Name: ISATULIZZIE SHEKHAR TRISTON NA Access ion #: [id number] Sex: F : 1979 7 Exam Date: 021 9:44 AM Exam Name: MG GUTIERREZ BREAST REFUGIO BILAT Admitt ing Diagno sis(es ): distor tion are seen. IMPRES ASHLEY: BIRADS 1: Assess ment comple te. Negati ve. Recomm end annual screen ing mammog jason. Accord ing to the [employer], yearly mammog sudarshan are recomm ended starti ng at age 40 and contin uing as long as the woman is in good health . Clinic al Breast Exam should be part of the period health exam-a bout every 3 years for women in their 20s and 30s and every year for women 40 and over. Breast self-e xam is an option for women in their 20s. Any breast change noted on the breast self-e xam she would be report ed prompt ly to the [facility]. A negati ve mammog jason report should not discou rage follow -up or biopsy of a clinic ally signif icant findin g and/or abnorm ality. Dense breast tissue may obscur e small neopla sms. This linda bello has been entere d into a mammog jason remind er system with a target date for her next mammog willy. Create d and electr onical ly signed by: Rashaun verduzco MD Signed Date: 10:57 AM (CT) Dictat ed by: Rashaun verduzco MD DD: 10:57 AM (CT) DT: 10:57 AM (CT) Page 2 of [id number] [facility] (Imaging) [address] [place], [address], 12/22/2022 22:45:30 06/23/20 21 06/23/2021 MAMMO , scree pooja, digit al, bilat eral No observ ation record ed. [id number] [facility]- [facility] [address] [place], [address], 12/22/2022 22:45:30 12/24/19 22 12/23/2021 XR, chest No observ ation record ed. [id number].[id number], [place], [address], 12/22/2022 22:45:30 11/10/19 23 11/09/2022 MAMMO , scree pooja, digit al, bilat eral No observ ation record ed. [id number], [place], [address], 12/22/2022 22:45:30 05/04/20 23 05/04/2023 US, liver No observ ation record ed. [email or web address] [place] [address] Imaging [address], [place], [address], 10/28/2023 11:34:05 Result Notes None recorded. Problems Name Problem SNOMED Code Status Onset Date Resolution Date Notes Provider Name and Address Organization Details Recorded Time Vitamin D deficiency 45207771 Active 2021 Not Available [employer] 22:44:06 Hyperglycemia 50900114 Active 2022 Zenia dunn MD [address], [place], [address] , [facility] [employer] [facility] [employer] [facility] 3 15:45:26 Increased liver function 20733371 Active 2022 Zenia dunn MD [address], [place], [address] , [facility] [employer] [facility] 3 15:54:59 Upper respiratory infection 95532794 Active 2022 Kya muñoz, [facility] [employer] [facility] 12:49:43 Problem Notes None recorded. Procedures Surgical History None recorded. Imaging Results Imaging Date Name Status LastModified by Organiz ation Details LastModified Time 11/09/2022 MAMMO, screening, digital, bilateral completed [id number] [address], [place], [address], 12/22/2022 22:45:30 06/23/2021 screening breast refugio, bilat completed [id number] [address] [facility] (Imaging) [address] [place], [address], 12/22/2022 22:45:30 06/23/2021 MAMMO, screening, digital, bilateral completed [id number] [address] [facility] [address] [place], [address], 12/22/2022 22:45:30 12/23/2021 XR, chest completed [id number], [place], [address], 12/22/2022 22:45:30 05/04/2023 US, liver completed [email or web address] [facility] [address], [place], [address], 10/28/2023 11:34:05 Procedure Notes None recorded. Medical Equipment None Reported. Allergies No known drug allergies Medications Name Sig Start Date Stop Date Status Note LastModified by Organization Details LastModified Time fluconazole 150 mg tablet TAKE 1 TABLET BY ORAL ROUTE 11/30 completed Not Available Not Available Not Available penicillin V potassium 500 mg tablet TAKE 1 TABLET EVERY 8 HOURS BY ORAL ROUTE FOR 7 DAYS. 11/30 completed Not Available Not Available Not Available Zyrtec 10 mg tablet Take 1 tablet every day by oral route as needed. 2020 active Not Available Not Available Not Avai lable ergocalcifer ol (vitamin D2) 1,250 mcg (50,000 unit) capsule 1 Capsule weekly for 8 weeks active Not Available Not Available No t Available loratadine 10 mg tablet TAKE 1 TABLET BY MOUTH EVERY DAY NEEDED active Not Available Not Available No t Available amoxicillin 875 mg-potassium clavulanate 125 mg tablet TAKE 1 TABLET BY MOUTH TWICE A DAY FOR 7 DAYS active Not Available Not Available No t Available cholecalcife rol (vitamin D3) 1,250 mcg (50,000 unit) capsule Take 1 capsule every week by oral route for 60 days. 2022 active Not Available Not Available Not Avai lable Flonase Allergy Relief 50 mcg/actuatio n nasal spray,suspen ashley 1 SPRAY EACH NOSTRIL DAILY NEEDED active Not Available Not Available No t Available Vitals Date Recorded Body mass index (BMI) Body height Oxygen saturation Oxygen saturation in Arterial blood by Pulse oximetry Heart rate Body temperature Body weight Systolic blood pressure Diastolic blood pressure Provider Name and Address Organization Details Last Updated DateTime 1 26.9 kg/m2 162.56 cm 98 % 98 % 91 /min 97.7 [degF] 73532 g 112 mm[Hg] 74 mm[Hg] Not Available [facility] 3 22:43:49 Date Recorded Body mass index (BMI) Body height Oxygen saturation Oxygen saturation in Arterial blood by Pulse oximetry Heart rate Body temperature Body weight Systolic blood pressure Diastolic blood pressure Provider Name and Address Organization Details Last Updated DateTime 1 26.4 kg/m2 162.56 cm 97 % 97 % 92 /min 96.8 [degF] 41511.2 2 g 110 mm[Hg] 80 mm[Hg] Not Available [facility] 3 22:43:49 Date Recorded Body mass index (BMI) Body height Heart rate Body temperature Body weight Systolic blood pressure Diastolic blood pressure Provider Name and Address Organization Details Last Updated DateTime 2 26.3 kg/m2 162.56 cm 78 /min 97.1 [degF] 98956.6 3 g 112 mm[Hg] 62 mm[Hg] Not Available [facility] 3 22:43:50 Date Recorded Heart rate Body height Oxygen saturation Oxygen saturation in Arterial blood by Pulse oximetry Heart rate Body temperature Systolic blood pressure Diastolic blood pressure Provider Name and Address Organization Details Last Updated DateTime 2 82 /min 162.56 cm 100 % 100 % 82 /min 97.2 [degF] 108 mm[Hg] 60 mm[Hg] Not Available [facility] 3 22:43:49 Date Recorded Body height Body temperature Heart rate Body mass index (BMI) Body weight Systolic blood pressure Diastolic blood pressure Provider Name and Address Organization Details Last Updated DateTime 3 162.56 cm 97.5 [degF] 78 /min 26.4 kg/m2 70319.2 2 g 140 mm[Hg] 76 mm[Hg] DEE Ching [place] [facility] [place] [employer] 3 15:34:47 Social History Question Answer Notes LastModified by Organizat ion Details LastModified Time Tobacco Smoking Status Never Smoker Not Available [facility] 12/22/2022 22:43:00 Do You Have An Advance Directive? No [id number] Information not available 12/22/2022 What Is Your Level Of Alcohol Consumption? None MIGRATION.04743 06044 Information not available 12/22/2022 What Is Your Level Of Caffeine Consumption? Moderate MIGRATION.18478 21910 Information not available 12/22/2022 How Much Tobacco Do You Chew? None MIGRATION.31232 70510 Information not available 12/22/2022 In The 14 Days Before Symptom Onset, Have You Had Close Contact With A Laboratory-confi rmed COVID-19 While That Case Was Ill? No MIGRATION.52569 [id number] Information not available 12/22/2022 In The 14 Days Before Symptom Onset, Have You Had Close Contact With A Person Who Is Under Investigation For COVID-19 While That Person Was Ill? No MIGRATION.38787 44358 Information not available 12/22/2022 What Type Of Diet Are You Following? REGULAR MIGRATION.50619 86466 Information not available 12/22/2022 Which Illicit Or Recreational Drugs Have You Used? None MIGRATION.14722 50860 Information not available 12/22/2022 Do You Or Have You Ever Used E-cigarettes Or Vape? Never Used Electronic Cigarettes MIGRATION.70813 90268 Information not available 12/22/2022 What Is The Highest Grade Or Level Of School You Have Completed Or The Highest Degree You Have Received? PB58477-2 MIGRATION.07412 17412 Information not available 12/22/2022 What Is Your Occupation? [employer] MIGRATION.15076 58443 Information not available 12/22/2022 Have There Been Any Changes To Your Family Or Social Situation? Yes MIGRATION.43289 43681 Information not available 12/22/2022 What Is The Fluoride Status Of Your Home? Unknown MIGRATION.59636 08787 Information not available 12/22/2022 Are There Any Guns Present In Your Home? Yes MIGRATION.34036 11146 Information not available 12/22/2022 Do You Use Insect Repellent Routinely? No MIGRATION.48791 00690 Information not available 12/22/2022 Where Do You Live? [facility] MIGRATION.17989 69321 Information not available 12/22/2022 Do You Have A Medical Power Of Grain Picker? No MIGRATION.86658 07340 Information not available 12/22/2022 What Was The Date Of Your Most Recent Tobacco Screening? 12/28/2022 [email or web address] Information not available 12/28/2022 Do You Have Any Pets? Yes MIGRATION.63157 38805 Information not available 12/22/2022 What Is Your Relationship Status? MIGRATION.85711 97593 Information not available 12/22/2022 Do You Have Smoke And Carbon Monoxide Detectors In Your Home? Yes MIGRATION.76711 34606 Information not available 12/22/2022 Are You Passively Exposed To Smoke? No MIGRATION.75583 01831 Information not available 12/22/2022 Do You Or Have You Ever Used Smokeless Tobacco? Never Used Smokeless Tobacco MIGRATION.13414 33151 Information not available 12/22/2022 Are There Any Smokers In Your House? No MIGRATION.75043 13209 Information not available 12/22/2022 How Much Tobacco Do You Smoke? No MIGRATION.22760 21545 Information not available 12/22/2022 Do You Feel Stressed (tense, Restless, Nervous, Or Anxious, Or Unable To Sleep At Night)? [id number] MIGRATION.41646 62629 Information not available 12/22/2022 Do You Use Sunscreen Routinely? Yes MIGRATION.32583 09200 Information not available 12/22/2022 Have You Recently Traveled Abroad? No MIGRATION.57118 46650 Information not available 12/22/2022 Do You Have Any Dietary Restrictions? No MIGRATION.46542 24713 Information not available 12/22/2022 Do You Or Have You Ever Used Any Other Forms Of Tobacco Or Nicotine? No MIGRATION.21441 87714 Information not available 12/22/2022 Sex: Female Functional Status Question Answer Note LastModified by Organizat ion Details LastModified Time What is your exercise level? None MIGRATION.[id number] Information not available 12/22/2022 Mental Status None recorded. Family History Relationship Description Onset Age of this Age Resolved Age Notes LastModified by Organization Details LastModified Time Father Family history of stroke [id number] Not available 12/22/2022 22:43:14 Father Heart disease MIGRATION.961 [id number] Not available 12/22/2022 22:43:14 Mother Family history of stroke MIGRATION.864 [id number] Not available 12/22/2022 22:43:14 Mother Diabetes mellitus MIGRATION.874 [id number] Not available 12/22/2022 22:43:14 Medical History Condition Response NERVE DISEASE N BLINDNESS N RHEUMATIC FEVER N KIDNEY STONES N BLADDER PROBLEMS N MRSA N OTHER # 1 N POLIO N LUNG DISEASE/DISORDER N RADIATION / CHEMOTHERAPY N COPD N Other # 2 N BLOOD DISEASES N SURGERY N EAR OR HEARING PROBLEMS N MUMPS N BOWEL PROBLEMS N DEPRESSION (INCLUDING POST ) N STROKE/TIA N ULCERS N BENIGN PROSTATIC HYPERPLASIA N MEASLES N MYOCARDIAL INFARCTION N OBESITY N GERD/NAUSEA N ANEURYSM N URINARY/BLADDER/KIDNEY PROBLEMS N CORONARY ARTERY DISEASE (CAD) N ADDICTION CONCERNS N ENDOMETRIOSIS N Impotence N USE OF BLOOD THINNERS N SKIN PROBLEMS N GASTROINTESTINAL DISORDER N PERIPHERAL VASCULAR DISEASE N MUSCLE,JOINT OR BONE PROBLEMS N GASTROINTESTINAL BLEEDING N BLOOD CLOTS N ASTHMA N CATARACTS N ERECTILE DYSFUNCTION N VARICOSITIES N GI PROBLEMS N Low Testosterone N INFERTILITY N AIDS/HIV N CHEMOTHERAPY / RADIATION N LIVER DISEASE N MALE HYPOGONADISM N HYPERTENSION N Deficiency Y ANXIETY DISORDER N BLOOD TRANSFUSION N ANEMIA/BLOOD DISORDER N CHRONIC EAR INFECTIONS N BRONCHITIS N TUBERCULOSIS N GLAUCOMA N FOOT PROBLEM N DIVERTICULITIS N SLEEP APNEA N CHICKENPOX N INFECTIOUS DISEASE N HEART ARRHYTHMIA N PROSTATE N INSOMNIA N HIGH CHOLESTEROL / HYPERLIPIDEMIA Y HYPERTHYROIDISM N EYE PROBLEMS N NEUROLOGICAL PROBLEMS N EDEMA N CHRONIC PAIN SYNDROME N HYPOTHYROIDISM N CAROTID BLOCKAGE N CONSTIPATION N BACK / NECK PROBLEMS N ATHEROSCLEROSIS N BREAST PROBLEMS N DIALYSIS N ECZEMA N OSTEOPOROSIS N ARTHRITIS N APPENDICITIS N DIABETES, TYPE N BAD TEETH N ENT N HEARTBURN / REFLUX N AUTISM SPECTRUM DISORDER (ASD) N HEPATITIS / LIVER DISEASE N GOUT N SLEEP DISORDER N ALZHEIMER'S DISEASE N Brain Problems N HERPES N DEMENTIA N HEADACHES/MIGRAINES N SEIZURES/EPILEPSY N VASCULAR DISEASE N PACEMAKER N Blood Disorder N DIZZINESS N HEART DISEASE/HEART PROBLEMS N KIDNEY DISEASE N MULTIPLE SCLEROSIS N CARDIAC ARRHYTHMIA N CANCER: SPECIFY N ATRIAL FIBRILLATION N Gall Stones N PULMONARY EMBOLISM N AUTOIMMUNE DISEASE N Gynecological HistoryNo gynecological history recorded. Obstetrics History GPAL:G 0 P 0 0 0 0 Immunizations Vaccine Type Date Status Note Provider Nam e and Address Organization Details Recorded Time COVID-19, mRNA, LNP-S, PF, 30 mcg/0.3 mL dose 1 completed Not Available [facility] 12/22/2022 22:45:13 Influenza, split virus, quadrivalent, preservative 1 completed Not Available [facility] 12/22/2022 22:45:13 COVID-19, mRNA, LNP-S, PF, 100 mcg/0.5mL dose or 50 mcg/0.25mL dose 1 completed Not Available [facility] 12/22/2022 22:45:13 Tdap 0 completed Not Available [facility] 12/22/2022 22:45:13 Influenza, split virus, quadrivalent, preservative 0 completed Not Available [facility] 12/22/2022 22:45:13 Influenza, split virus, quadrivalent, PF 2 completed Not Available [facility] 12/22/2022 22:45:13 Past Encounters Encounter ID Performer Location Encounter Start Date Encounter Closed Date Diagnosis/Indication Diagnosis SNOMED-CT Code Diagnosis ICD10 Code Diagnosis Note [id number] Zenia dunn MD [facility] [address] [facility] [address] [place] [address] 01/20/2021 00:00:00 01/20/2021 12:18:38 [id number] Zenia dunn MD [facility] Internal Med [facility] [address] [place] [address] Ave[address] [address] 07/28/2021 00:00:00 07/28/2021 15:06:25 [id number] Zenia dunn MD [facility] Internal Med [address] [facility] , [facility] [place] [address] 11/30/2021 00:00:00 12/28/2021 12:27:15 [id number] Zenia dunn MD [facility] Internal Med [facility] [address] [address] 08/03/2022 00:00:00 08/30/2022 10:47:45 [id number] Zenia dunn MD [facility] Internal Med [facility] [address] [place], [place] [address]e., [address] [address] 12/28/2022 15:20:54 12/28/2022 16:09:22 Screening - NAD 756499487 Z13.9 Get yearly flu shotUTD Tdap 06/24/2020 UTD on COVID 19 vaccine PAP: Get an apt with Dr Meza her OBMammogra m: 06/23/2021 : Neg RTC 3 monthsDo labsER if worseShe did verbalize her understand ing of the above Hyperglycemia 95291500 R 73.9 Pre diabetes Declines meds for now 08/03/2022 , states that she is eating a lot of sweets Diet and exercise Repeat the labs Vitamin D deficiency 347 55602 E55.9 Get on vit d weekly and repeat the labs Increased liver function 36968272 R94.5 Long-term drug therapy 495295854 Z79.899 Health Concerns Section Related Observation LastModified by Organization Detai ls LastModified Time None Recorded Concern Status LastModified by Organization Details LastModified Time None Recorded Advance Directives Directive N: Payers Encounter Date Sequence Insurance Name Policy Number Policy Naik Covered Member ID Naik Member ID Guarantor Name 12/28/2022 1 [facility] [id number] Agnes Infante [id number] Marily Narda Notes Date Note Type Note Provider Name and Address Organization Details Recorded Time 12/28/2022 text/html OV 01/20/2021:He re to establish carePast Hx:AllergiesReview ed social family and surgical historyShe is doing wellHere for her preventative and routine visitShe would like to get labs OV 07/28/2021:Here for her routine aptShe is doing wellShe did do the labs OV 11/30/2021:Here for her routine aptShe is doing wellShe did do the labs OV 08/03/2022:Here for her f/u apt, she is doing well, she did do the labs OV 12/28/2022:Here for her f/u apt, she is doing well today Zenia Akers MD [address] [place] [address], [address], [place], [address], [place] [facility] 02/16/2023 14:43:21 OBGyn Episode No OBEpisode recorded.
--- OUTSIDE RECORDS SUMMARY | 2025-02-20 10:23 | XMS_ITS | Data Portability ---
Author Organization [facility] Address [address] [place] [address] Assessment Encounter Date Assessment Date Assessment LastModified [...] testing. 2020 [place]NY [facility], [address], [address] [address], [place], [address], 08:17:16 urinalysi s, dipstick 2020 021 [email or web address] In-Office Order, Internal Use Only DO Not Attach Compendium DO Not Attach Compendium, Do Not Delete/merge, [id number] 16:50:12 bacterial vaginosis panel, vaginal 2020 LENNY [facility] (Centralized Electronic Ordering - All Locations), Patient Can Go To The Location Of Their Choice, 11:37:33 culture, vaginal/r ectal, streptoco ccus group B 2020 [place] [facility] (Centralized Electronic Ordering - All Locations), Patient Can Go To The Location Of Their Choice, [id number] 11:37:34 lipid panel, serum 2019 020 [place] [facility], [address], [address], [place], [address], 0 06:38:03 CMP, serum or plasma 2019 020 [facility], [address], [address], [place], [address], 0 06:38:03 TSH, serum or plasma 2019 020 [place] [facility], [address], [address], [place], [address], 0 06:38:05 CBC w/ auto diff 2019 [place] [facility], [address], [address], [place], [address], 0 06:38:04 vitamin B12 + folate, serum or blood 2019 020 [place] [facility], [address], [address], [place], [address], 0 06:38:04 iron + TIBC + ferritin, serum 2019 [facility], [address], [address], [place], [address], 0 06:38:05 vitamin D, 25-hydrox y, total, serum 2019 020 [facility], [address], [address], [place], [address], 0 16:23:30 test, urine 2018 019 ene In-Office Order, Internal Use Only DO Not Attach Compendium DO Not Attach Compendium, Do Not Delete/merge, [id number] 12:36:57 urinalysi s, dipstick 2018 019 [email or web address] In-Office Order, Internal Use Only DO Not Attach Compendium DO Not Attach Compendium, Do Not Delete/merge, [id number] 12:36:57 PPD (purified protein derivativ e), skin test 2017 018 [email or web address] In-Office Order, Internal Use Only DO Not Attach Compendium DO Not Attach Compendium, Do Not Delete/merge, [id number] 18:42:26 Referral None recorded. Procedures None recorded. Surgeries None recorded. Imaging None recorded. Medication Orders multivita min tablet 2020 021 [place] [facility] [address], [address], 1 16:50:15 Calcium with Vitamin D 600 mg-10 mcg (400 unit) tablet 2020 021 [facility] [address], [address], 1 16:50:16 Slynd 4 mg (28) tablet 2019 020 [email or web address] [facility] [address], [address], 1 15:06:45 multivita min tablet 2019 020 [facility] [address], [address], 0 16:31:26 Calcium with Vitamin D 600 mg-10 mcg (400 unit) tablet 2019 020 [facility] [address], [address], 0 16:31:25 amoxicill in 875 mg-potass ium clavulana te 125 mg tablet 2019 020 [email or web address] [address] In [facility], [address] [place], [address], 1 15:05:45 Claritin 10 mg tablet 2019 020 [facility] [address] In [facility], [address] [place], [address], 0 16:48:27 Patient TargetsNo targets recorded. Patient InstructionsNo instructions recorded. Reason for Referral None Reported. Results Created Date Observation Date Name Description Value Unit Range Abnormal Flag Note LastModifiedBy Organization Detail LastModifiedTime 09/11/20 18 09/11/2018 bacte rial vagin osis + vagin itis panel , vagin al bv category: NOT SUPPOR TIVE see below Refer ence Range : Not Suppo rtive Not Available [address] [address] [place], [address], 09/11/2018 08:53:42 09/11/20 18 09/11/2018 bacte rial vagin osis + vagin itis panel , vagin al lactobacillu s species DETECT ED log_c ells/ mL Not Available [address] [address] [place], [address], 09/11/2018 08:53:42 09/11/20 18 09/11/2018 bacte rial vagin osis + vagin itis panel , vagin al atopobium vaginae NOT DETECT ED log_c ells/ mL - Not Available [facility] [address] [address] [place], [address], 09/11/2018 08:53:42 09/11/20 18 09/11/2018 bacte rial vagin osis + vagin itis panel , vagin al megasphaera species NOT DETECT ED log_c ells/ mL - Not Available [facility] [address] [address] [place], [address], 09/11/2018 08:53:42 09/11/20 18 09/11/2018 bacte rial [...] produ cing Lacto bacil li. Not Available [facility] - [address] [place], [address], 09/11/2018 08:53:42 09/11/20 18 09/11/2018 bacte rial vagin osis + vagin itis panel , vagin al sureswab(R) trichomonas vaginalis RNA, ql tma NOT DETECT ED not detect ed Not Available [facility] - [address] [address] [place], [address], 09/11/2018 08:53:42 09/11/20 18 09/11/2018 bacte rial vagin osis + vagin itis panel , vagin al C. albicans, DNA NOT DETECT ED not detect ed Not Available [facility] - [address], [address], 09/11/2018 08:53:42 09/11/20 18 09/11/2018 bacte rial vagin osis + vagin itis panel , vagin al C. glabrata, DNA NOT DETECT ED not detect ed Not Available [facility] - [address], [address], 09/11/2018 08:53:42 09/11/20 18 09/11/2018 bacte rial vagin osis + vagin itis panel , vagin al C. tropicalis, DNA NOT DETECT ED not detect ed Not Available [facility] - [address] [address] [place], [address], 09/11/2018 08:53:42 09/11/20 18 09/11/2018 bacte rial [...] on this test, go to: http: //[facility] radha fair.que stdia gnost ics.c om/fa q/Tri chomo nastm a Not Available [facility] [address] [address] [place], [address], 09/11/2018 08:53:42 09/11/20 18 09/11/2018 HSV (1+2) DNA, qual, PCR, unspe cifie d speci men hsv 1 DNA NOT DETECT ED not detect ed Not Available [facility] [address] [address] [place], [address], 09/11/2018 08:53:42 09/11/20 18 09/11/2018 HSV (1+2) [...] for clini anny purpo ses. Not Available [facility] [address] [address] [place], [address], 09/11/2018 08:53:42 09/11/20 18 09/11/2018 yeast , organ ism speci fic cultu re, unspe cifie d speci men culture, yeast, w/identifica tion SEE NOTE CULTU RE, YEAST , W/JAMES NTIFI CATIO N MICRO NUMBE R: [id number] TEST STATU S: FINAL SPECI MEN [...] CLIEN T SERVI MARK. PHONE NUMBE R: [phone] Not Available [facility] [address] [place], [address], 09/11/2018 08:53:43 08/12/2008/12/2021 urina lysis , dipst ick Leukocytes Negati ve Not Available In-Office Order Internal Use Only DO Not Attach Compendium DO Not Attach Compendium, Do Not Delete/merge, [id number] 08/12/2021 14:58:18 08/12/20 21 08/12/2021 urina lysis , dipst ick Nitrite negati ve Not Available In-Office Order Internal Use Only DO Not Attach Compendium DO Not Attach Compendium, Do Not Delete/merge, 08/12/2021 14:58:18 08/12/20 21 08/12/2021 urina lysis , dipst ick Urobilinogen .2 Not Available In-Of fice Order Internal Use Only DO Not Attach Compendium DO Not Attach Compendium, Do Not Delete/merge, [id number] 08/12/2021 14:58:18 08/12/20 21 08/12/2021 urina lysis , dipst ick Protein Negati ve Not Available In-Office Order Internal Use Only DO Not Attach Compendium DO Not Attach Compendium, Do Not Delete/merge, [id number] 08/12/2021 14:58:18 08/12/20 21 08/12/2021 urina lysis , dipst ick pH 5.5 Not Available In-Office Order Internal Use Only DO Not Attach Compendium DO Not Attach Compendium, Do Not Delete/merge, [id number] 08/12/2021 14:58:18 08/12/20 21 08/12/2021 urina lysis , dipst ick Blood Hemoly zed: Trace Not Available In-Office Order Internal Use Only DO Not Attach Compendium DO Not Attach Compendium, Do Not Delete/merge, 08/12/2021 14:58:18 08/12/20 21 08/12/2021 urina lysis , dipst ick Specific [place] 1.025 Not Available In-Off ice Order Internal [...] 11/23/1911/23/2018 urina lysis , dipst ick Specific [place] 1.030 Not Available In-Off ice Order Internal [...] DO Not Attach Compendium, Do Not Delete/merge, [id number] 10/10/2018 18:35:10 10/25/19 19 10/25/2018 PPD (tai fied prote in deriv ative ), skin test Result Negati ve Not Available In-Office Order Internal Use Only DO Not Attach Compendium DO Not Attach Compendium, Do Not Delete/merge, [id number] 10/20/2018 16:41:02 07/10/20 20 07/11/2020 iron + TIBC + sathish tin, serum iron, total 58 mcg/d L 40-190 normal Not Available [address], [address], 07/11/2020 10:45:47 07/10/20 20 07/11/2020 iron + TIBC + sathish tin, serum iron binding capacity 322 mcg/d L_(ca lc) 250-45 0 normal Not Available [address], [address], 07/11/2020 10:45:47 07/10/20 20 07/11/2020 iron + TIBC + sathish tin, serum % saturation 18 %_(ca lc) 16-45 normal Not Available [address], [address], 07/11/2020 10:45:47 07/10/20 20 07/11/2020 iron + TIBC + sathish tin, serum ferritin 37 NG/mL 16-154 normal Not Available [address], [address], 07/11/2020 10:45:47 07/10/20 20 07/11/2020 lipid panel , serum cholesterol, total 161 mg/dL <200 normal Not Available [address], [address], 07/11/2020 10:45:47 07/10/20 20 07/11/2020 lipid panel , serum HDL cholesterol 52 mg/dL > or = 50 normal Not Available [address], [address], 07/11/2020 10:45:47 07/10/20 20 07/11/2020 lipid panel , serum triglyceride s 84 mg/dL <150 normal Not Available [address], [address], 07/11/2020 10:45:47 07/10/20 20 07/11/2020 lipid panel [...] 2061- 2068 (http ://ed ucati on.Qu [employer]. com/f aq/FA Q164) Not Available [address] [address] [place], [address], 07/11/2020 10:45:47 07/10/2007/11/2020 lipid panel , serum chol/HDLC ratio 3.1 (calc ) <5.0 normal Not Available [address], [address], 07/11/2020 10:45:47 07/10/2007/11/2020 lipid panel , serum non HDL cholesterol 109 mg/dL _(anny c) <130 normal For patie nts with diabe robbi plus 1 major ASCVD risk facto r, treat ing to a non-H DL-C goal of <100 mg/dL (LDL- C of <70 mg/dL ) is consi dered a thera peuti c optio n. Not Available [address], [address], 07/11/2020 10:45:47 07/10/20 20 07/11/2020 CMP, serum or plasm a glucose 92 mg/dL 65-99 normal Fasti ng refer ence inter diana Not Available [address], [address], 07/11/2020 10:45:47 07/10/20 20 07/11/2020 CMP, serum or plasm a urea nitrogen (BUN) 10 mg/dL 7-25 normal Not Available [address], [address], 07/11/2020 10:45:47 07/10/20 20 07/11/2020 CMP, serum or plasm a creatinine 0.61 mg/dL 0.50-1 .10 normal Not Available [address], [address], 07/11/2020 10:45:47 07/10/20 20 07/11/2020 CMP, serum or plasm a eGFR non-afr. burmese 114 mL/mi n/1.7 3m2 > or = 60 normal Not Available [address], [address], 07/11/2020 10:45:47 07/10/20 20 07/11/2020 CMP, serum or plasm a eGFR 132 mL/mi n/1.7 3m2 > or = 60 normal Not Available [address], [address], 07/11/2020 10:45:47 07/10/20 20 07/11/2020 CMP, serum or plasm a BUN/creatini ne ratio NOT APPLIC ABLE (calc ) 6-22 Not Available [address], [address], 07/11/2020 10:45:47 07/10/20 20 07/11/2020 CMP, serum or plasm a sodium 137 mmol/ L 135-14 6 normal Not Available [address], [address], 07/11/2020 10:45:47 07/10/20 20 07/11/2020 CMP, serum or plasm a potassium 4.6 mmol/ L 3.5-5. 3 normal Not Available [address], [address], 07/11/2020 10:45:47 07/10/2007/11/2020 CMP, serum or plasm a chloride 101 mmol/ L 98-110 normal Not Available [address], [address], 07/11/2020 10:45:47 07/10/20 20 07/11/2020 CMP, serum or plasm a carbon dioxide 29 mmol/ L 20-32 normal Not Available [address], [address], 07/11/2020 10:45:47 07/10/20 20 07/11/2020 CMP, serum or plasm a calcium 9.3 mg/dL 8.6-10 .2 normal Not Available [address], [address], 07/11/2020 10:45:47 07/10/2007/11/2020 CMP, serum or plasm a protein, total 6.9 g/dL 6.1-8. 1 normal Not Available [address], [address], 07/11/2020 10:45:47 07/10/20 20 07/11/2020 CMP, serum or plasm a albumin 4.1 g/dL 3.6-5. 1 normal Not Available [address], [address], 07/11/2020 10:45:47 07/10/20 20 07/11/2020 CMP, serum or plasm a globulin 2.8 g/dL_ (calc ) 1.9-3. 7 normal Not Available [address], [address], 07/11/2020 10:45:47 07/10/20 20 07/11/2020 CMP, serum or plasm a albumin/glob ulin ratio 1.5 (calc ) 1.0-2. 5 normal Not Available [address], [address], 07/11/2020 10:45:47 07/10/20 20 07/11/2020 CMP, serum or plasm a bilirubin, total 0.5 mg/dL 0.2-1. 2 normal Not Available [address], [address], 07/11/2020 10:45:47 07/10/20 20 07/11/2020 CMP, serum or plasm a alkaline phosphatase 46 U/L 31-125 normal Not Available [facility] [employer] [address], [address], 07/11/2020 10:45:47 07/10/20 20 07/11/2020 CMP, serum or plasm a AST 14 U/L 10-30 normal Not Available [address], [address], 07/11/2020 10:45:47 07/10/20 20 07/11/2020 CMP, serum or plasm a ALT 17 U/L 6-29 normal Not Available [address], [address], 07/11/2020 10:45:47 07/10/20 20 07/11/2020 CBC w/ auto diff white blood cell count 7.4 thous and/u L 3.8-10 .8 normal Not Available [address], [address], 07/11/2020 10:45:48 07/10/2007/11/2020 CBC w/ auto diff red blood cell count 4.14 lydia on/uL 3.80-5 .10 normal Not Available [address], [address], 07/11/2020 10:45:48 07/10/2007/11/2020 CBC w/ auto diff hemoglobin 12.2 g/dL 11.7-1 5.5 normal Not Available [address], [address], 07/11/2020 10:45:48 07/10/2007/11/2020 CBC w/ auto diff hematocrit 37.3 % 35.0-4 5.0 normal Not Available [address], [address], 07/11/2020 10:45:48 07/10/20 20 07/11/2020 CBC w/ auto diff MCV 90.1 fL 80.0-1 00.0 normal Not Available [address], [address], 07/11/2020 10:45:48 07/10/2007/11/2020 CBC w/ auto diff MCH 29.5 pg 27.0-3 3.0 normal Not Available [address], [address], 07/11/2020 10:45:48 07/10/2007/11/2020 CBC w/ auto diff MCHC 32.7 g/dL 32.0-3 6.0 normal Not Available [address], [address], 07/11/2020 10:45:48 07/10/2007/11/2020 CBC w/ auto diff RDW 12.1 % 11.0-1 5.0 normal Not Available [address], [address], 07/11/2020 10:45:48 07/10/20 20 07/11/2020 CBC w/ auto diff platelet count 276 thous and/u L 140-40 0 normal Not Available [address], [address], 07/11/2020 10:45:48 07/10/20 20 07/11/2020 CBC w/ auto diff MPV 12.5 fL 7.5-12 .5 normal Not Available [address], [address], 07/11/2020 10:45:48 07/10/20 20 07/11/2020 CBC w/ auto diff absolute neutrophils 4803 cells /uL 1500-7 800 normal Not Available [address], [address], 07/11/2020 10:45:48 07/10/20 20 07/11/2020 CBC w/ auto diff absolute lymphocytes 1702 cells /uL 850-39 00 normal Not Available [address], [address], 07/11/2020 10:45:48 07/10/20 20 07/11/2020 CBC w/ auto diff absolute monocytes 555 cells /uL 200-95 0 normal Not Available [address], [address], 07/11/2020 10:45:48 07/10/20 20 07/11/2020 CBC w/ auto diff absolute eosinophils 289 cells /uL 15-500 normal Not Available [address], [address], 07/11/2020 10:45:48 07/10/20 20 07/11/2020 CBC w/ auto diff absolute basophils 52 cells /uL 0-200 normal Not Available [address], [address], 07/11/2020 10:45:48 07/10/20 20 07/11/2020 CBC w/ auto diff neutrophils 64.9 % normal Not Available [address], [address], 07/11/2020 10:45:48 07/10/20 20 07/11/2020 CBC w/ auto diff lymphocytes 23.0 % normal Not Available [address], [address], 07/11/2020 10:45:48 07/10/20 20 07/11/2020 CBC w/ auto diff monocytes 7.5 % normal Not Available [address], [address], 07/11/2020 10:45:48 07/10/20 20 07/11/2020 CBC w/ auto diff eosinophils 3.9 % normal Not Available [address], [address], 07/11/2020 10:45:48 07/10/20 20 07/11/2020 CBC w/ auto diff basophils 0.7 % normal Not Available [address], [address], 07/11/2020 10:45:48 07/10/20 20 07/11/2020 awn test refus al RAM1 Be advis ed that your patie nt has indic ated on the advan ce writt en notic e their decis ion not to recei ve the follo wing labor atory tests . As a resul t, the tests will not be perfo rmed. Not Available [address], [address], 07/11/2020 10:45:48 07/10/20 20 07/11/2020 awn test refus al awn test refused [id number] Not Available [address], [address], 07/11/2020 10:45:48 07/10/20 20 07/11/2020 vitam in [...] pg/mL will have sympt oms. Not Available [facility] [address] [place], [address], 07/11/2020 10:45:48 07/10/20 20 07/11/2020 vitam in B12 + folat e, serum or blood folate, serum 13.2 NG/mL normal Refer ence Range Low: <3.4 Borde rline : 3.4-5 .4 Mackenzie l: >5.4 Not Available [facility] [address] [place], [address], 07/11/2020 10:45:48 07/10/2007/11/2020 TSH, serum or plasm a TSH w/reflex to FT4 1.20 mIU/L normal Refer ence Range > or = 20 Years 0.40- 4.50 Pregn jalil Range s First trime ster 0.26- 2.66 Secon d trime ster 0.55- 2.73 Third trime ster 0.43- 2.91 Not Available [facility] [address] [place], [address], 07/11/2020 10:45:49 08/12/20 21 08/14/2021 IGP, APTIM A HPV diagnosis: Commen t NEGAT KIERAN FOR INTRA EPITH ELIAL LESIO N OR JAYJAY TREJO . Not Available [facility] ([facility]) [address] [facility], [place], [address], 08/15/2021 08:17:16 08/12/2008/14/2021 IGP, APTIM A HPV specimen adequacy: Parveen bello Satis facto ry for evalu ation . Endoc ervic al and/o r squam ous metap lasti c cells (endo cervi anyn compo nent) are prese nt. Not Available [facility] ([facility]) [address] [facility], [place], [address], 08/15/2021 08:17:16 08/12/20 21 08/14/2021 IGP, APTIM A HPV clinician provided ICD10: Parveen bello Z01.4 19 Not Available [facility] ([facility]) [address] [place], [address], 08/15/2021 08:17:16 08/12/20 21 08/14/2021 IGP, APTIM A HPV performed by: Parveen finley, Cytot jeff reilly t (ASCP ) Not Available [facility] ([facility]) [address] [place], [address], 08/15/2021 08:17:16 08/12/20 21 08/14/2021 IGP, APTIM A HPV . . Not Available [facility] ([facility]) [address] [place], [address], 08/15/2021 08:17:16 08/12/20 21 08/14/2021 IGP, APTIM [...] ts do occur . Not Available [facility] ([facility]) [address] [facility], [place], [address], 08/15/2021 08:17:16 08/12/2008/14/2021 IGP, APTIM A HPV test methodology: Commen t This liqui d based ThinP rep(R ) pap test was nelly rivers with the use of an image guide ivy vizcarra. Not Available [facility] ([facility]) [address] [facility], [place], [address], 08/15/2021 08:17:16 08/12/2008/15/2021 IGP, APTIM A HPV HPV aptima Negati ve negati ve This nucle ic acid ampli ficat ion test detec ts fourt een high- risk HPV types (16,1 8,31, 33,35 ,39,4 5,51, 52,56 ,58,5 9,66, 68) witho ut diffe renti ation . Not Available [facility] ([facility]) [address] [facility], [place], [address], 08/15/2021 08:17:16 08/12/2008/17/2021 NUSWA B VG+, HSV atopobium vaginae Low - 0 score Not Available [facility] ([facility]) [address] [facility], [place], [address], 08/19/2021 11:37:33 08/12/2008/17/2021 NUSWA B VG+, HSV bvab 2 Low - 0 score Not Available [facility] ([facility]) [address] [place], [address], 08/19/2021 11:37:33 08/12/20 21 08/17/2021 NUSWA B [...] Drug Admin istra tion. Not Available [facility] ([facility]) [address] [facility], [place], [address], 08/19/2021 11:37:33 08/12/2008/17/2021 NUSWA B VG+, HSV cortney albicans, JANES Positi ve negati ve abnormal Not Available [facility] ([facility]) [address] [place], [address], 08/19/2021 11:37:33 08/12/2008/17/2021 NUSWA B VG+, HSV cortney glabrata, JANES Negati ve negati ve Not Available [facility] ([facility]) [address] [place], [address], 08/19/2021 11:37:33 08/12/2008/17/2021 NUSWA B VG+, HSV chlamydia trachomatis, JANES Negati ve negati ve Not Available [facility] ([facility]) [address] [place], [address], 08/19/2021 11:37:33 08/12/2008/17/2021 NUSWA B VG+, HSV neisseria gonorrhoeae, JANES Negati ve negati ve Not Available [facility] ([facility]) [address] [place], [address], 08/19/2021 11:37:33 08/12/20 21 08/19/2021 NUSWA B VG+, HSV trich vag by JANES TNP Test Not Perfo rmed. The speci men submi tted was too visco us for latosha sis. Not Available [facility] ([facility]) [address] [place], [address], 08/19/2021 11:37:33 08/12/20 21 08/19/2021 NUSWA B VG+, HSV hsv 1 JANES Negati ve negati ve Not Available [facility] ([facility]) [address] [place], [address], 08/19/2021 11:37:33 08/12/2008/19/2021 NUSWA B VG+, HSV hsv 2 JANES Negati ve negati ve Not Available [facility] ([facility]) [address] [place], [address], 08/19/2021 11:37:33 08/12/2008/14/2021 STREP GP B JANES [...] n is noted . Not Available [facility] ([facility]) [address] [facility], [place], [address], 08/19/2021 11:37:34 Result Notes None recorded. Problems Name Problem SNOMED Code Status Onset Date Resolution Date Notes Provider Name and Address Organization Details Recorded Time Acute sinusitis 42342131 Active 2017 Rio Machado [place] null, [place] - [facility] 9 12:02:38 19448007 Completed 201701/25/2018 Keaton Meza [place], [place] - [facility] 8 12:12:31 Advanced maternal age 171308316 Completed 2017 Rena Dee [place] [facility] 8 13:05:06 Advanced maternal age 844652287 Active 2017 Rena Dee [place] [facility] 8 13:05:06 Genital herpes simplex type 2 864438940 Completed 2015 Rena Dee [place] [facility] 8 13:05:06 Acute sinusitis 46191330 Completed 2017 Rena Dee [place] [facility] 8 13:05:06 Allergic rhinitis 33927076 Completed Rena Dee [place] [facility] 8 13:05:06 Acute urinary tract infection 195428228 Completed Rena Dee [place] [facility] 8 13:05:06 Tuberculo sis screening Active 2017 Rio Machado [place], [place] [facility] 9 12:02:38 At increased risk of nutrition al deficit 366989044 Active 2019 Cheko Hong PA-C Attn: Rodríguez g,[address] [facility], [place], [address], [place] - [facility] 0 16:48:56 Hyperlipi demia screening Active 2019 Cheko Hong PA-C Attn: Rodríguez jorgensen,[address] 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 90563766 Active 2020 Keaton Susana muñoz, [place] - [facility] 1 11:48:56 Allergic rhinitis 43424249 Active MARIA E Perez, [place] - [facility] 9 12:02:38 Painful urging to urinate 45455048 Completed 01/25/2018 Keaton muñoz [place] - [facility] 8 12:12:36 Acute urinary tract infection 543575119 Active MARIA E Perez[place] - [facility] 9 12:02:38 Genital herpes simplex type 2 629318472 Active 2015 Rio Machado [place] [facility] 9 12:02:38 History and physical examinati on, school Completed 201601/25/2018 Keaton muñoz, [place] - [facility] 8 12:12:54 Requires tetanus and diphtheri a vaccinati on 451672725 Completed 201601/25/2018 Keaton muñoz [place] - [facility] 8 12:12:58 History of chickenpo x 199374859 Completed 201601/25/2018 Keaton muñoz, [place] - [facility] 8 12:13:07 Problem Notes None recorded. Procedures Surgical History Date Name Laterality Status Provider Name and Address Organization Details Recorded Time 1 Date of Last Pap Smear completed MARIA E Hyde - [facility] 08/12/2021 15:07:21 8 IUD Insertion completed Rena Dee MA [place] - [facility] 09/04/2018 12:49:08 Imaging Results None recorded. Procedure Notes None recorded. Medical Equipment None Reported. Allergies Allergen ID Allergen Name Allergen Category Reaction Reaction Severity Criticality Documentation Date Start Date Code Code System Note Provider Name and Address Organization Details Recorded Time 27438 banana extract food,medi cation itching severe Not available 05/10/2016 40558 9 RxNorm itchy throa t and swoll en throa t Ofelia [place] null, [place] - [facility] 8 10:33:38 Medications Name Sig Start Date Stop Date [...] Updated DateTime 11/23/2018 162.56 cm 27.5 kg/m2 62622.78 g 108 mm[Hg] 74 mm[Hg] Rio Machado [place] - [facility] 9 12:02:15 Date Recorded Body weight Oxygen saturation Oxygen saturation in Arterial blood by Pulse oximetry Heart rate Body temperature Systolic blood pressure Diastolic blood pressure Provider Name and Address Organization Details Last Updated DateTime 0 68266.0 3 g 98 % 98 % 81 /min 98.4 [degF] 122 mm[Hg] 72 mm[Hg] Lanie Perez MA [facility] 0 16:39:54 Date Recorded Body height Body mass index (BMI) Body weight Provider Name and Address Organization Details Last Updated DateTime 06/11/2020 162.56 cm 26.1 kg/m2 66622.04 g Rena MARIA E Dee [facility] 06/11/2020 12:38:28 Date Recorded Body height Body mass index (BMI) Body weight Systolic blood pressure Diastolic blood pressure Provider Name and Address Organization Details Last Updated DateTime 08/12/2021 162.56 cm 25.9 kg/m2 43402.45 g 124 mm[Hg] 76 mm[Hg] Ariana Klein [facility] 1 15:11:22 Social History Question Answer Notes LastModified by Organizat ion Details LastModified Time Tobacco Smoking Status Never Smoker Ofelia Raygoza MA null, [facility] 05/10/2016 11:42:34 Do You Have An Advance Directive? No Information not available 12/26/2017 What Is Your Level Of Alcohol Consumption? None Information not available 05/10/2016 If You Are , What Was Your Level Of Alcohol Consumption Prior To ? None Information not available 02/21/2018 Is Anesthesia Consult Planned? No [email or web address] Information not available 02/21/2018 Plan Yes [email or web address] Information no t available 02/21/2018 Is Blood Transfusion Acceptable In An Emergency? Yes [email or web address] Information not available 02/21/2018 What Is Your Level Of Caffeine Consumption? Occasional Information not available 05/10/2016 Live With Cats/exposure To Cat Litter No [email or web address] Information not available 02/21/2018 How Much Tobacco Do You Chew? None [email or web address] Information not available 02/21/2018 Are You Currently Employed? Yes Information not available 12/26/2017 What Type Of Diet Are You Following? REGULAR Information not available 05/10/2016 Do You Or Have You Ever Used E-cigarettes Or Vape? 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 No [email or web address] Information no t available 02/21/2018 Are There Any Guns Present In Your Home? No Information not available 12/26/2017 Hard Of Hearing Or Deaf In One Or Both Ears? No [email or web address] Information not available 02/21/2018 Illicit Drugs Pre- Denies [email or web address] Information not available 02/21/2018 How Many Years Have You Used Illicit Or Recreational Drugs? 0 [email or web address] Information not available 02/21/2018 Legally Blind In One Or Both Eyes? No [email or web address] Information no t available 02/21/2018 Marital Status Informatio n not available 05/10/2016 What Was The Date Of Your Most Recent Tobacco Screening? 08/12/2021 Information not available 08/12/2021 How Many Children Do You Have? 2 Information not available 12/26/2017 Performs Monthly Self-breast Exam? Yes [email or web address] Information no t available 02/21/2018 Do You [...] Carbon Monoxide Detectors In Your Home? Yes Information not available 02/21/2018 Are You Passively Exposed To Smoke? No Information no t available 02/21/2018 Do You Or Have You Ever Used Smokeless Tobacco? Never Used Smokeless Tobacco Information not available 06/11/2020 How Much Tobacco Do You Smoke? No Information not available 05/10/2016 Smoking Pre- No [email or web address] Information not available 02/21/2018 General Stress Level Medium Information not available 05/10/2016 Do You Use Any Illicit Or Recreational Drugs? No Information not available 08/12/2021 Do You Use Sunscreen Routinely? Yes Information not available 12/26/2017 Supplements Pnv [email or web address] Information n ot available 02/21/2018 Has Tobacco [...] High Blood Pressure N Atrial Fibrillation N Breast Cancer N Depression N COPD N Blood Clots N Breast Problem N Anesthesia Complications N Headaches/Migraines N Anxiety Disorder N Muscle, Joint, or Bone Problems N Infertility N Polyps N Acid Reflux (GERD) N Cancer N Stroke N Endometriosis N High Cholesterol N Liver Disease N Headaches N Thyroid Problems N Kidney or Bladder Problems N GI Problems N Acne N Eating Disorder N Skin Problems N Anemia N Heart Attack (PR) N Diabetes N Ovarian Cancer N Blood Transfusions N Seizures/Epilepsy N Abuse/Domestic Violence N Asthma N Allergies Y Hepatitis N Heart Disease N Pre-Eclampsia N Heart [...] vector-nr, rS-Ad26, PF, 0.5 mL 01/29/2021 completed CALEB Herrera - [facility] 04/22/2021 12:56:22 Tdap 03/10/2017 completed Not Available [facility] 11/10/2019 02:33:32 Tdap 04/25/2018 completed Not Available [facility] 11/10/2019 02:35:51 Past Encounters Encounter ID Performer Location Encounter Start Date Encounter Closed Date Diagnosis/Indication Diagnosis SNOMED-CT Code Diagnosis ICD10 Code Diagnosis Note [id number] MD Kayden Trinh (Adult Med) [address] [place] [address] [id number] 0 05/10/2016 11:21:53 05/10/2016 12:03:54 Allergic rhinitis 54035693 J30.9 Hyperlipid emia screening 669611608 Z13.220 Anemia screening 2809135 07 Z13.0 [id number] MD Kayden Connors (Adult Med) [address] [place] [address] 25810-943 0 07/12/2016 09:41:04 07/12/2016 17:59:22 Allergic rhinitis 44743092 J30.9 Painful ur ging to urinate 83292937 R30.0 [id number] MD Kayden Werner ([employer]) [address] [place] [address] 93682-708 0 09/30/2016 10:45:40 10/01/2016 15:46:48 Gynecologic examination 91577024 Z01.611 [id number] ANGELA Kee (Adult Med) [address] [place] [address] 60020-550 0 10/01/2016 10:34:53 10/05/2016 10:57:13 Allergic rhinitis 52099087 J30.9 [id number] MD Kayden Trinh (Adult Med) [address] [place] [address] 68280-315 0 03/10/2017 12:30:10 03/10/2017 13:24:08 History and physical examination, [facility] 16654126 Z02.0 Requires t etanus and diphtheria vaccination 742551289 Z28.3 History of chickenpox 16 5612606 Z86.19 [id number] ANGELA Kee (Adult Med) [address] [place] [address] [id number] 0 03/22/2017 12:40:20 03/24/2017 10:39:36 Tuberculosis screening 103471021 Z11.1 [id number] MD Kayden Trinh (Adult Med) [address] [place] [address] 07223-106 0 10/28/2017 10:20:32 10/28/2017 11:48:11 Acute sinusitis 31483696 J01.90 Allergic rhinitis 430679 04 J30.9 [id number] MD Kayden Werner ([employer]INE OPERATOR) [address] [place] [address] 24774-061 0 12/26/2017 10:46:39 12/26/2017 12:30:30 Routine care 866232972 Z34.90 Advanced m aternal age 876131261 O09.521 Genital he rpes simplex type 2 171025534 A60.00 Abnormal progesterone 13 8584626 R94.7 [id number] MD Kayden Werner ([employer]INE OPERATOR) [address] [place] [address] 07138-848 0 01/13/2018 10:21:06 01/13/2018 15:26:53 Routine care 509718153 Z34.90 [id number] MD Kayden Werner ([employer]INE OPERATOR) [address] [place] [address] 37026-752 0 01/25/2018 10:59:54 01/25/2018 13:11:05 Routine care 409819961 Z34.90 Advanced m aternal age 364157284 O09.059 [id number] MD Kayden Werner ([employer]INE OPERATOR) [address] [place] [address] 25495-192 0 02/21/2018 10:09:19 02/21/2018 13:25:36 Routine care 900953647 Z34.90 Abnormal progesterone 13 8566690 R94.7 Advanced m aternal age 337327157 O09.881 [id number] [facility]INE OPERATOR) [address] [place] [address] 12462-518 0 03/27/2018 10:43:46 03/28/2018 11:08:36 Routine care 399241754 Z34.90 Advanced m aternal age 114476647 O09.521 Genital he rpes simplex type 2 648053723 A60.00 [id number] MD Kayden Werner ([employer]INE OPERATOR) [address] [place] [address] [id number] 0 04/25/2018 09:59:44 04/25/2018 10:58:01 Routine care 158340074 Z34.90 Genital he rpes simplex type 2 001489474 A60.00 Advanced m aternal age 653509746 O09.406 [id number] MD Kayden Werner ([employer] MACHINE OPERATOR) [address] [place] [address] 54585-603 0 05/17/2018 15:07:38 05/17/2018 16:21:31 Routine care 947166321 Z34.90 Family tobi nning surveillance 888537838 Z30.09 [id number] MD Kayden Werner ([employer]ACHINE OPERATOR) [address] [place] [address] 46109-913 0 05/31/2018 11:45:08 05/31/2018 12:48:00 Routine care 504870666 Z34.90 Advanced m aternal age 458794992 O09.521 Genital he rpes simplex type 2 384521848 A60.00 [id number] MD Kayden Werner ([employer] M[employer]INE OPERATOR) [address] [place] [address] 50864-043 0 06/14/2018 10:45:26 06/14/2018 11:14:26 Routine care 435324108 Z34.90 Advanced m aternal age 742030709 O09.521 Genital he rpes simplex type 2 548861568 A60.00 [id number] MD Kayden Werner ([employer]INE OPERATOR) [address] [place] [address] [id number] 0 06/28/2018 10:11:12 06/28/2018 11:35:28 Routine care 962184869 Z34.90 Lab work will be done at [facility] aternal age 489560797 O09.521 Patient given order for 3rd trimester ultrasound but does not want it Genital he rpes simplex type 2 901523580 A60.00 [id number] MD Kayden Werner ([employer]INE OPERATOR) [address] [place] [address] 29501-293 0 07/05/2018 10:20:17 07/05/2018 10:51:43 Routine care 656519092 Z34.90 Lab work will be done at [facility] aternal age 588829747 O09.521 Patient given order for 3rd trimester ultrasound but does not want it Genital he rpes simplex type 2 383257267 A60.00 Allergic rhinitis 999340 04 J30.9 [id number] MD Kayden Werner ([employer] M[employer]INE OPERATOR) [address] [place] [address] 27906-992 0 07/13/2018 12:23:57 07/13/2018 12:54:56 Routine care 778997562 Z34.90 Lab work will be done at [facility] [id number] MD Kayden Werner ([employer] MACHINE OPERATOR) [address] [place] [address] [id number] 0 07/18/2018 14:28:38 07/18/2018 15:29:35 Advanced maternal age 917870665 O09.521 Patient given order for 3rd trimester ultrasound but does not want it Genital he rpes simplex type 2 788139126 A60.00 Routine an tenatal care 683679208 Z34.90 Lab work will be done at [facility] [id number] MD Kayden Werner ([employer] M[employer]INE OPERATOR) [address] [place] [address] 59754-339 0 09/04/2018 11:28:51 09/04/2018 13:41:42 care 235523639 Z39.2 Exposure t o sexually transmissible disorder 245417294 Z20.2 Insertion of intrauterine contraceptive device 92304392 Z30.430 Genital he rpes simplex type 2 497010515 A60.00 [id number] MD Kayden Trinh (Adult Med) [address] [place] [address] [id number] 0 10/10/2018 17:38:48 10/11/2018 10:46:12 Tuberculosis screening 413838666 Z11.1 [id number] ANGELA Kee (Adult Med) [address] [place] [address] 16311-477 0 10/20/2018 16:36:20 10/23/2018 09:08:04 Tuberculosis screening 904858539 Z11.1 [id number] MD Kayden Werner ([employer] MACHINE OPERATOR) [address] [place] [address] 80922-767 0 11/23/2018 11:48:13 11/24/2018 09:41:44 Family planning surveillance 837058781 Z30.09 Surveillan ce of intrauterine device contraception done 8481019766 01135 Z30.40 [id number] MD Kayden Trinh (Adult Med) [address] [place] [address] 46168-364 0 06/05/2020 16:20:22 06/06/2020 09:51:32 Upper respiratory infection 10737780 J06.9 Acute urin jaison tract infection 923183124 N39.0 Allergic rhinitis 141250 04 J30.9 At [facility] risk of nutritional deficit 952237099 Z91.89 Hyperlipid emia screening 035372805 Z13.220 Acute sinusitis 15066622 J01.90 [id number] MD Kayden Werner ([employer] MACHINE OPERATOR) [address] [place] [address] 26821-302 0 06/11/2020 09:47:04 06/12/2020 10:05:15 Family planning surveillance 459215585 Z30.09 paraguard check? [id number] MD Kayden Werner (P[employer] MACHINE OPERATOR) [address] [place] [address] [id number] 0 08/12/2021 14:42:29 08/13/2021 11:12:24 Gynecologic examination 64953996 Z01.419 Family tobi nning surveillance 430530785 Z30.09 paraguard check - in place Genital he rpes simplex type 2 422016085 A60.00 Exposure t o sexually transmissible disorder 444685940 Z20.2 Health Concerns Section Related Observation LastModified by Organization Detai ls LastModified Time None Recorded Concern Status LastModified by Organization Details LastModified Time None Recorded Advance Directives Directive N: Payers Encounter Date Sequence Insurance Name Policy Number Policy Naik Covered Member ID Naik Member ID Guarantor Name 10/20/2018 1 [place] [id number] Irineo Venelinov [id number] Marily Georgieva-V enelinova 11/23/2018 1 [place] [id number] Irineo Venelinov [id number] Marily Georgieva-V enelinova 06/05/2020 1 [facility] [id number] Marily Georgieva- Venelinova [id number] Marily Georgieva-V enelinova 06/11/2020 1 [facility] [id number] Marily Georgieva- Venelinova [id number] Marily Georgieva-V enelinova 08/12/2021 1 [facility] [id number] Marily Georgieva- Venelinova [id number] Marily Georgieva-V enelinova Notes Date Note Type Note Provider Name and Address Organization Details Recorded Time 11/23/2018 text/html 38 yo CF he re for IUD check. CALEB Espinoza - [facility] 11/23/2018 19:38:36 06/05/2020 text/html no fever , but congested sinus pressure Cheko Hong PA-C Attn: Accounting[address] [place], [address], [facility] - [facility] 06/09/2020 11:05:48 06/11/2020 text/html 40 yo with hx pf UTI, HSV2 CF present for phone visit for IUD check. She complains of bleeding for 2 years between periods described as light to moderate, dark brown. CALEB Espinoza - [facility] 06/11/2020 17:55:44 08/12/2021 text/html 40 yo F wit h hx pf UTI, HSV2 CF present for annual well woman exam. LAst pap 2018 normal. CALEB Espinoza [facility] 08/12/2021 16:51:52 08/12/2021 text/html Annual GYNReport ed bypatient.Menstrua l cycle:Normal menses Urinary symptoms:No hematuria; No incontinence Vulva:No genital lesion Vagina:Normal vaginal discharge Breast:No breast pain; No breast lump; No nipple discharge Sexual complaints:No sexual complaints; No pain during intercourse; Normal libido Menopausal Symptoms:No menopausal symptoms; Normal vaginal lubrication Psychological symptoms:No depression; No anxiety; No PMDD CALEB Espinoza [facility] 08/12/2021 16:51:52 OBGyn Episode Ob Episode Information Episode Created Date Number of Fetuses Patient Bloodtype Patient rh Status Prepregnancy Weight lbs Domestic Partner Domestic Partner Phone Father Name Elder Assistant Status 09/30/20 16 1 CLOSED Fetus Data First Name Last Name Admitted to NICU Weight (g) Sex Living Outcome Pediatric Complications Fetus ID Race Codes Race Delivery Type 3855.53 2 F Full Term [id number] Vaginal Jhoan Calculation Initial Jhoan Date Initial [...] Domestic Partner Domestic Partner Phone Father Name Elder Assistant Status 09/30/20 16 1 CLOSED Fetus Data First Name Last Name Admitted to NICU Weight (g) Sex Living Outcome Pediatric Complications Fetus ID Race Codes Race Delivery Type 3912.23 1 M Full Term 27584 Vaginal Jhoan Calculation Initial Jhoan Date Initial [...] Domestic Partner Domestic Partner Phone Father Name Elder Assistant Status 12/27/19 18 1 139 Zaira n Ven[address] ov Dr. Cruz and Dr. Islas CLOSED Fetus Data First Name Last Name Admitted to NICU Weight (g) Sex Living Outcome Pediatric Complications Fetus ID Race Codes Race Delivery Type Rosalind e Valent inova Venel inova false 3316.89 15 F true Full Term 52899 2106-3 White Standard Vaginal Delivery Problems Problem Notes 03/27/18 baby girl, Nadine, middle name tbd Venelinova, breast feed, NCB NO EPEDURAL!!, Peds Dr. Anthony MD, [facility] Paragard IUD cb-rma verified 06/28/2018 mds Problem Name Start Date End Date Resolution Snomed Code Not e Acute sinusitis 10/28/2017 83809970 Genital herpes simplex type 2 10/05/2016 681229207 Advanced maternal age 12/26/2017 112353133 Acute urinary tract infection 586994081 Allergic rhinitis 78092733 Jhoan Calculation Initial Jhoan Date Initial Exam [...] 18 11 [email or web address] 01/25/2018 07/24/20 18 1 Pre- Flowsheet Flowsheet Date 12/26/2017 Sanchez Score Blood Edema Fundus Height Fundus Units Glucose Ketones Leukocytes Nitrite Labor Signs Protein Cervic Dilation Cervic Effacement Cervic Station none Type Weight in lbs Pre/Post Dialysis Refused 145.8982803262 BP Diastolic BP Location Tested BP Systolic [...] Type Weight in lbs Pre/Post Dialysis Refused 150.119072516701 BP Diastolic BP Location Tested BP Systolic BP Type 70 104 sitting Fetus Heart Rate Present A 166 Present Fetus Movement A No Comments afp next/ us Flowsheet Date 02/21/2018 Sanchez Score Blood Edema Fundus Height Fundus Units Glucose Ketones Leukocytes Nitrite Labor Signs Protein Cervic Dilation Cervic Effacement Cervic Station none 18 wks Type Weight in lbs Pre/Post Dialysis Refused 154.806836950010 BP Diastolic BP Location Tested BP Systolic [...] Type Weight in lbs Pre/Post Dialysis Refused 158.184339739124 BP Diastolic BP Location Tested BP Systolic [...] Type Weight in lbs Pre/Post Dialysis Refused 166.164243622154 BP Diastolic BP Location Tested BP Systolic [...] Type Weight in lbs Pre/Post Dialysis Refused 168.266695616838 BP Diastolic BP Location Tested BP Systolic BP Type 60 100 sitting Fetus Heart Rate Present A 145 Present Fetus Movement A Yes Comments Flowsheet Date 05/31/2018 Sanchez Score Blood Edema Fundus Height Fundus Units Glucose Ketones Leukocytes Nitrite Labor Signs Protein Cervic Dilation Cervic Effacement Cervic Station neg none 32 wks none negative none neg Type Weight in lbs Pre/Post Dialysis Refused 171.234024375431 BP Diastolic BP Location Tested BP Systolic BP Type 66 104 sitting Fetus Heart Rate Present A 143 Present Fetus Movement A Yes Comments Flowsheet Date 06/14/2018 Sanchez Score Blood Edema Fundus Height Fundus Units Glucose Ketones Leukocytes Nitrite Labor Signs Protein Cervic Dilation Cervic Effacement Cervic Station neg none 34 wks none negative none neg Type Weight in lbs Pre/Post Dialysis Refused 171.135169791501 BP Diastolic BP Location Tested BP Systolic [...] Type Weight in lbs Pre/Post Dialysis Refused 173.618992149345 BP Diastolic BP Location Tested BP Systolic BP Type 58 98 sitting Fetus Heart Rate Present A 150 Present Fetus Movement A Yes Comments 38 yo at 36.2wks. Sh dax will get her labs done at [facility] today. Offered a 3rd trimester US but patient is unsure if she wants. Flowsheet Date 07/05/2018 Sanchez Score Blood Edema Fundus Height Fundus Units Glucose Ketones Leukocytes Nitrite Labor Signs Protein Cervic Dilation Cervic Effacement Cervic Station neg none 37 wks none negative none neg 0cm 0% - 4 Type Weight in lbs Pre/Post Dialysis Refused 172.571171635478 BP Diastolic BP Location Tested BP Systolic [...] Type Weight in lbs Pre/Post Dialysis Refused 174.66845435457 BP Diastolic BP Location Tested BP Systolic [...] Type Weight in lbs Pre/Post Dialysis Refused 177.325808236865 BP Diastolic BP Location Tested BP Systolic BP Type 70 118 sitting Fetus Heart Rate Present A 143 Present Fetus Movement A Yes Comments Flowsheet Date 09/04/2018 Sanchez Score Blood Edema Fundus Height Fundus Units Glucose Ketones Leukocytes Nitrite Labor Signs Protein Cervic Dilation Cervic Effacement Cervic Station Type Weight in lbs Pre/Post Dialysis Refused 160.080107152657 BP Diastolic BP Location Tested BP Systolic [...] At Estimated Date of Delivery true Thalassemia (Japanese, Cambodian, Mediterranean, Or Background): MCV < 80 false Neural Tube Defect (Meningomyelocele, Spina Bifi da, Or Anencephaly) false Congenital Heart Defect false Down Syndrome false Twin-Sachs (eg, Anabaptist, Cajun, British-Maldivian) f alse Lauren Disease false Sickle Cell Disease Or Trait () false Hemophilia Or Other Blood Disorders false Muscular Dystrophy false Cystic Fibrosis false Dubois's Chorea false Mental Retardation/Autism false If Yes, [...] 01/13/2018 HIV and other routin e tests rhunley01/13/2018 Risk factors identif ied by history [email or web address] 01/13/2018 Weight gain counseling [email or web address] [email or web address] 01/13/2018 Exercise [email or web address] 01/13/2018 Teratogens rhunley01/13/2018 Use of any medicatio ns (including supplements, vitamins, herbs, or OTC drugs) [email or web address] 01/13/2018 03/27/18 breast feed, cb-rma [email or web address] 01/13/2018 Sexual activity unley01/13/2018 Tobacco/smoking cess ation counseling (ask, advise, assess, assist, and arrange) [email or web address] 01/13/2018 Illicit/recreational drugs r [email or web address] 01/13/2018 Dental care [email or web address] 01/13/2018 Travel [email or web address] 01/13/2018 Seat belt use rhunley01/13/2018 Indications for ultrasonography rhunley01/13/2018 Avoidance of saunas or hot tubs [email or web address] 01/13/2018 Toxoplasmosis precau tions (cats/raw meat) [email or web address] Second Trimester Discussed Date Discussion Item Discussion Note Discuss ed By 03/27/2018 Selecting a care provider 03/27/18 Dr. Anthony MD, cb-rma [email or web address] 03/27/2018 family planning/tubal sterilization 05/17/18 PPBC Paragard IUD, ordered 05/17/18 cb-rma [email or web address] 03/27/2018 Depression screening (when indicated) [email or web address] 03/27/2018 Abnormal lab values [email or web address] [email or web address] 03/27/2018 Signs and symptoms o f labor [email or web address] 03/27/2018 Intimate partner violence cb rad03/27/2018 Tobacco/smoking cess ation counseling (ask, advise, assess, assist, and arrange) [facility] Third Trimester Discussed Date Discussion Item Discussion Note Discuss ed By 03/27/2018 Anesthesia plans 03/27/18 [facility]URAL, [facility] 03/27/2018 Circumcision 03/27/18 baby gi rl, no to circ if boy, , [facility] 06/28/2018 movement monitoring ms [email or web address] 03/27/2018 03/27/18 [facility] feed, [facility] Labor signs given wtc/wlb [email or web address] Delivery Information Delivery Date Delivery Type Labor Anesthesia Weeks Gestation Incision Type Labor Labor Length Hrs Delivered By Post Complications Tubal Sterilization Discharge Date Comments 8 Sponta neous Local [address] Meza None false 07/25/2018 Pediatric mario: Dr. Cruz Discharge Information Feeding Method Contraceptive Method Maternal HG B and HCT Levels Breast Paragard IUD
[2025-02-20 10:24] LABS: Alanine Aminotransferase 64 U/L (6-35); Albumin Level 4.6 g/dL (3.5-5.1); Alkaline Phosphatase 69 U/L (38-126); Anion Gap 11 mmol/L (4-12); Aspartate Amino Transferase 42 U/L (14-36); Blood Urea Nitrogen 12 mg/dL (7-17); Calcium 9.2 mg/dL (8.4-10.2); Carbon Dioxide 26 mmol/L (22-30); Chloride 101 mmol/L (98-107); Cholesterol 194 mg/dL (0-200); Estimated Glomerular Filt Rate > 60; Glucose 107 mg/dL (65-110); HDL Direct 64 mg/dL; Potassium 4.2 mmol/L (3.4-5.0); Sodium 138 mmol/L (137-145); Triglycerides 80 mg/dL (<150)
[2025-02-20 10:35] LABS: LDL Cholesterol Direct 86 mg/dL
[2025-02-20 10:39] LABS: Beta HCG Quantitative < 2.39 mIU/ML
[2025-02-20 11:18] LABS: Hemoglobin A1C 5.7 % (<5.7)
[2025-02-20 15:12] LABS: Hematocrit 41.2 % (37.0-47.0); Hemoglobin 12.9 g/dL (12.0-15.0); Mean Corpuscular HGB Conc 31.3 g/dl (32-36); Mean Corpuscular Hemoglobin 28.7 pg (26-34); Mean Corpuscular Volume 91.8 fl (80-100); Mean Platelet Volume 12.4 fl (7.4-10.4); Platelet Count Result 299 k/mm3 (150-375); Red Blood Count 4.49 M/mm3 (4.2-5.4); Red Cell Distribution Width 12.8 % (11.5-14.5); White Blood Count 7.3 K/mm3 (4.5-10.0)
== END 2025-02-20 09:33 | disposition home or self-care (01) ==
LOC: ANHLAB 09:38
PROVIDERS: PCP Family Medicine; Referring Provider Nurse Practitioner Family; Visit Provider Student in an Organized Health Care Education/Training Program
DX: N91.2 Amenorrhea, unspecified (principal); R74.8 Abnormal levels of other serum enzymes; R73.03 Prediabetes; E50.9 Vitamin A deficiency, unspecified; Z13.29 Encounter for screening for other suspected endocrine disorder
CPT/HCPCS: 36415; 80053; 80061; 82306; 83036; 84443; 84702; 85027